=== PATIENT | female | born 1990 | race Caucasian/White ===

== ENCOUNTER 2016-05-10 18:05 | Emergency (ER) | payer OTHER, MEDICAID ==
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
[2016-05-10 22:33] VITALS: BP 135/76
== END 2016-05-10 22:34 | disposition home or self-care (01) ==
LOC: ER 18:05
DX: O26.893 Other specified pregnancy related conditions, third trimester (principal); R10.9 Unspecified abdominal pain; V49.50XA Passenger injured in collision with unspecified motor vehicles in traffic accident, initial encounter; Z3A.34 34 weeks gestation of pregnancy
CPT/HCPCS: 99283

== ENCOUNTER 2016-05-10 22:14 | Outpatient (CLI) | payer OTHER, MEDICAID ==
[2016-05-10 23:16] LABS: APPEARANCE,URINE SLIGHTLY-CLOUDY; BILIRUBIN,URINE NEGATIVE (NEGATIVE); GLUCOSE, URINE NEGATIVE (NEGATIVE); KETONES,URINE TRACE mg/dL (NEGATIVE); LEUKOCYTE ESTERASE,URINE LARGE (NEGATIVE); NITRITE,URINE NEGATIVE (NEGATIVE); PROTEIN,URINE NEGATIVE (NEGATIVE); URINE SPECIFIC GRAVITY 1.003; UROBILINOGEN,URINE NEGATIVE mg/dL (<2.0)
[2016-05-10 23:30] LABS: URINE BARBITURATES SCREEN NEGATIVE; URINE METHADONE SCREEN NEGATIVE; URINE OPIATES LOW NEGATIVE; URINE PHENCYCLIDINE SCREEN NEGATIVE
[2016-05-10 23:52] LABS: ABSOLUTE BASOPHILS # (AUTO) 0.1 10^3/uL (0.0-0.2); ABSOLUTE EOSINOPHILS # (AUTO) 0.1 10^3/uL (0.0-0.6); ABSOLUTE LYMPHOCYTES (AUTO) 2.6 10^3/uL (0.5-4.7); ABSOLUTE MONOCYTES (AUTO) 0.8 10^3/uL (0.1-1.4); ABSOLUTE NEUT (AUTO) 10.2 10^3/uL (1.7-8.2); BASOPHILS % (AUTO) 0.4 % (0-2); EOSINOPHILS % (AUTO) 0.6 % (0-6); HEMATOCRIT 33.3 % (36.0-47.0); HEMOGLOBIN 10.9 g/dL (12.0-15.5); HGB HCT DIFFERENCE -0.6; LYMPHOCYTES % (AUTO) 18.6 % (13-45); MEAN CORPUSCULAR HEMOGLOBIN 26.6 pg (27.0-33.4); MEAN CORPUSCULAR HGB CONC 32.7 g/dL (32.0-36.0); MEAN CORPUSCULAR VOLUME 81 fl (80-97); MONOCYTES % (AUTO) 6.1 % (3-13); RED BLOOD COUNT 4.09 10^6/uL (3.72-5.28); RED CELL DISTRIBUTION WIDTH 14.6 % (11.5-14.0); SEGMENTED NEUTROPHILS % (AUTO) 74.3 % (42-78); WHITE BLOOD COUNT 13.8 10^3/uL (4.0-10.5)
[2016-05-10 23:58] LABS: FIBRINOGEN 582 mg/dL (209-497); PARTIAL THROMBOPLASTIN TIME 26.4 SEC (23.5-35.8)
[2016-05-11 02:34] LABS: TOTAL RBC COUNT 2011; TYPE IN FILE? TYPE NOT IN FILE; VOL OF FETOMATERNAL HEMORRHAGE 0 ML (0)
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
--- NOTE | 2016-05-11 04:46 | Antepartum Discharge Summary ---
Antepartum DC Datetime Report Generated by CPN: 05/11/2016 04:45 DIET/ACTIVITY/RESTRICTIONS Diet: Regular (05/11/2016 00:31:Zita Patino, RN) TEACHING/INSTRUCTIONS/REFERRALS Instructions Given To: Patient and Family (05/11/2016 00:31:Zitamedina Patino RN) Instructions Understood: Patient Verbalized Understanding; Support Person Verbalized Understanding (05/11/2016 00:31:Zitamedina Patino RN) Referrals: None (05/11/2016 00:31:Zita Patino RN) Educational Materials- Other: Kick Counts, Labor, Placental Abruption Precautions (05/11/2016 00:31:Zita Patino RN) DISCHARGE INFORMATION Discharged AMA: No (05/11/2016 00:31:Zita Patino RN) Discharge Date/Time: 05/11/2016 00:21 (05/11/2016 00:31:Zita Patino RN) Discharged To: Home (05/11/2016 00:31:Zita Patino RN) Discharge Provider Name: [place] (05/11/2016 00:31:Zita Patino RN) Accompanied By: Family (05/11/2016 00:31:Zita Patino RN) Discharge Method: Ambulatory (05/11/2016 00:31:Zita Patino RN) Condition: Stable (05/11/2016 00:31:Zita Patino RN) FOLLOW UP INFORMATION Follow Up With: [facility] (05/11/2016 00:31:Zita Patino RN) Follow Up On: As Scheduled (05/11/2016 00:31:Zita Patino RN) Follow Up Phone Number: [facility] - (05/11/2016 00:31:Zita Patino RN) Comments: Patient advised to return for bleeding like a period, leaking of fluid, contractions every 5 minutes for an hour, or decreased movement. Patient without questions at this time. (05/11/2016 00:31:Zita Patino RN)
--- NOTE | 2016-05-11 04:46 | L&D General Admission ---
General Admit Datetime Report Generated by CPN: 05/11/2016 04:45 INFORMATION Patient Age: 26 (04/18/2016 09:36:QS system process) EDC: 06/17/2016 00:00 (05/10/2016 22:18:Indira Murillo RN) : 3 (05/10/2016 22:18:Zita Patino RN) Para: 2 (05/11/2016 00:31:Zita Patino RN) Para: 2 (05/10/2016 22:18:Zita Patino RN) Term: 2 (05/10/2016 22:18:Zita Patino RN) : 0 (05/10/2016 22:18:Zita Patino RN) Spontaneous Abortions: 0 (05/10/2016 22:18:Zita Patino RN) Induced Abortions: 0 (05/10/2016 22:18:Zita Patino RN) Livin (05/10/2016 22:18:Zita Patino RN) Cesareans: 0 (05/10/2016 22:18:Zita Patino RN) VBACs: 0 (05/10/2016 22:18:Zita Patino RN) Ectopic: 0 (05/10/2016 22:18:Zita Patino RN) Multiple Births: 0 (05/10/2016 22:18:Zita Patino RN) Baby, Number in Womb: 1 (05/11/2016 00:31:Zita Patino RN) Baby, Number in Womb: 1 (05/10/2016 22:18:Zita Patino RN) CARE Primary Certified Procedural Coder: [employer] [facility] (05/10/2016 22:18:Zita Patino RN) Adequate Care: Yes (05/10/2016 22:18:iZta Patino RN) Height (in): 60 (05/10/2016 22:24:QS system process) ALLERGIES Medication Allergy: No (05/10/2016 22:18:Zita Patino RN) Medication Allergies: No Known Allergies (05/10/2016) (05/10/2016 18:28:QS system process) Latex Allergy: No Latex Allergies (05/10/2016 22:18:Zita Patino RN) Food Allergies: none (05/10/2016 22:18:Zita Patino RN) Environmental Allergies: none (05/10/2016 22:18:Zita Patino, RN) COMMUNICATION Primary Language: [place] (05/10/2016 22:18:Zita Patino RN) Medical Tx Preferred Language: [place] (05/10/2016 22:18:Zita Patino, RN) DEMOGRAPHICS Address: [address] [place] [id number] (04/18/2016 09:36:QS system process) Zipcode: [address] (04/18/2016 09:36:QS system process) Home (04/18/2016 09:36:QS system process) Work (05/10/2016 22:14:QS system process) Work (04/18/2016 09:36:QS system process) SSN: [id number] (04/18/2016 09:36:QS system process) Next of Kin Name: ANDREW PUCKETT (04/18/2016 09:36:QS system process) Next of Kin (04/18/2016 09:36:QS system process) Next of Kin Relationship: SPO (04/18/2016 09:36:QS system process) Date of : 1990 (04/18/2016 09:36:QS system process) Marital Status: (04/18/2016 09:36:QS system process) Sex: Female (04/18/2016 09:36:QS system process) Race: (04/18/2016 09:36:QS system process) Ethnicity: Non- or (04/18/2016 09:36:QS system process) Caodaism: None (04/18/2016 09:36:QS system process) DRUG AND ALCOHOL USE Alcohol: No (05/10/2016 22:18:Zita Patino RN) Cigarettes: Never Smoker. [id number] (05/10/2016 22:18:Zita Patino RN) Marijuana: No (05/10/2016 22:18:Zita Patino RN) Cocaine: No (05/10/2016 22:18:Zita Patino RN) Other Illicit Drugs: No (05/10/2016 22:18:Zita Patino RN) VACCINE HISTORY Influenza Vaccine: Yes (05/10/2016 22:18:Zita Patino RN) Pneumococcal Vaccine: No (05/10/2016 22:18:Zita Patino RN) Tetanus Vaccine: Yes (05/10/2016 22:18:Zita Patino RN) Tdap Vaccine: Yes (05/10/2016 22:18:Zita Patino RN) Hepatitis B Vaccine: Yes (05/10/2016 22:18:Zita Patino RN) Stitcher Standard Machine: Dr Wolfe (05/10/2016 22:18:Zita Patino RN) Feeding Preference: Breast (05/10/2016 22:18:Zita Patino RN) Benefit of Breast Feed Discussed: Yes (05/10/2016 22:18:Zita Patino RN) Circumcision: No (05/10/2016 22:18:Zita Patino RN) Classes Attended: No (05/10/2016 22:18:Zita Patino RN) Tubal Ligation: No (05/10/2016 22:18:Zita Patino RN) Tubal Authorization Signed: N/A (05/10/2016 22:18:Zita Patino RN) Consent: N/A (05/10/2016 22:18:Zita Patino RN) Consent Signed: N/A (05/10/2016 22:18:Zita Patino RN) Pain Management Plans: Epidural (05/10/2016 22:18:Zita Patino RN) Plans for Labor and Delivery: None (05/10/2016 22:18:Zita Patino RN) Support Person: Miguelangel (05/10/2016 22:18:Zita Patino RN) Support Person Relationship: (05/10/2016 22:18:Zita Patino RN) Cultural/Spritual Practice: No (05/10/2016 22:18:Zita Patino RN) Spir/Cult Dietary Needs: No (05/10/2016 22:18:Zita Patino RN) LIVING SITUATION/DISCHARGE PLAN Living Arrangements: House (05/10/2016 22:18:Zita Patino RN) Adequate Access to:: Electric; Heat; Refrigeration; Plumbing/Running water; Phone; Transportation (05/10/2016 22:18:Zita Patino RN) WIC Program: No (05/10/2016 22:18:Zita Patino RN) Discharge Electrician Maintenance Person: Miguelangel (05/10/2016 22:18:Zita Patino RN) Person to Help after Discharge: Miguelangel (05/10/2016 22:18:Zita Patino RN) Currently Using Commun Resources: Yes (05/10/2016 22:18:Zita Patino RN) Specify Current Resource Used: Medicaid (05/10/2016 22:18:Zita Patino RN) Outside Agency/Ring Packer: No (05/10/2016 22:18:Zita Patino RN) Car Seat for Discharge: No (05/10/2016 22:18:Zita Patino RN) Adoption Requested: No (05/10/2016 22:18:Zita Patino RN) Pt Contact w/infant Post : N/A (05/10/2016 22:18:Zita Patino RN) LABS Blood Type: O Positive (05/10/2016 22:18:Zita Patino RN) Antibody Screen: negative (05/10/2016 22:18:Zita Patino RN) Hemoglobin: 10.9 L (05/10/2016 23:39:QS system process) Hematocrit: 33.3 L (05/10/2016 23:39:QS system process) MCV: 81 (05/10/2016 23:39:QS system process) Gonorrhea: Negative (05/10/2016 22:18:Zita Patino RN) Chlamydia: Negative (05/10/2016 22:18:Zita Patino RN) RPR/VDRL: Nonreactive (05/10/2016 22:18:Zita Patino RN) HIV Results: negative (05/10/2016 22:18:Zita Patino RN) Hepatitis B: Negative (05/10/2016 22:18:Zita Patino RN) Rubella: Immune (05/10/2016 22:18:Zita Patino RN) OB/PREVIOUS HISTORY Previous Procedures: Ultrasound; NST (05/10/2016 22:18:Zita Patino RN) Current Procedures: Ultrasound; NST (05/10/2016 22:18:Zita Patino RN) History of Previous : No (05/10/2016 22:18:Zita Patino RN) History of Gestational Diabetes: No (05/10/2016 22:18:Zita Patino RN) History of PIH: No (05/10/2016 22:18:Zita Patino RN) History of Incompetent Cervix: No (05/10/2016 22:18:Zita Patino RN) History of Placenta Previa/Abrup: No (05/10/2016 22:18:Zita Patino RN) History of Macrosomia: No (05/10/2016 22:18:Zita Patino RN) History of IUGR: No (05/10/2016 22:18:Zita Patino RN) History of Hemorrhage: No (05/10/2016 22:18:Zita Patino RN) History of Loss/Stillborn: No (05/10/2016 22:18:Zita Patino RN) History of : No (05/10/2016 22:18:Zita Patino RN) History of D (Rh) Sensitization: No (05/10/2016 22:18:Zita Patino RN) History Recurrent Loss/Stillborn: No (05/10/2016 22:18:Zita Patino RN) History Depression/PP Depression: No (05/10/2016 22:18:Zita Patino RN) History of Uterine Anomaly/ULISES: No (05/10/2016 22:18:Zita Patino RN) History of Infertility: No (05/10/2016 22:18:Zita Patino RN) History of ART Treatment: No (05/10/2016 22:18:Ziat Patino RN) History of ULISES: No (05/10/2016 22:18:Zita Patino RN) Comments Obstetrical History: G1: 2011 female 5lbs 15 ounces G2: 2012 female 5 lbs 2 ounces G3: Current (05/10/2016 22:18:Zita Patino RN) MEDICAL HISTORY Med Hx Diabetes: No (05/10/2016 22:18:Zita Patino RN) Med Hx Hypertension: Yes (05/10/2016 22:18:Zita Patino RN) Med Hx Heart Disease: No (05/10/2016 22:18:Zita Patino RN) Med Hx Autoimmune Disorder: No (05/10/2016 22:18:Zita Patino RN) Med Hx Kidney Disease/UTI: No (05/10/2016 22:18:Zita Patino RN) Med Hx Neurologic/Epilepsy: No (05/10/2016 22:18:Zita Patino RN) Med Hx Psychiatric Disorders: No (05/10/2016 22:18:Zita Patino RN) Med Hx Hepatitis/Liver Disease: No (05/10/2016 22:18:Zita Patino RN) Med Hx Varicosities/Phlebitis: No (05/10/2016 22:18:Zita Patino RN) Med Hx Thyroid Dysfunction: No (05/10/2016 22:18:Zita Patino RN) Med Hx Trauma/Violence: No (05/10/2016 22:18:Zita Patino RN) Med Hx Blood Transfusion: No (05/10/2016 22:18:Zita Patino RN) Med Hx Pulmonary (Asthma,TB): No (05/10/2016 22:18:Zita Patino RN) Med Hx Breast: No (05/10/2016 22:18:Zita Patino RN) Med Hx PULMONOLOGY TECHNICIAN Surgery: No (05/10/2016 22:18:Zita Patino RN) Med Hx Hospitalization/Surgery: Yes (05/10/2016 22:18:Zita Patino RN) Med Hx Anesthetic Complications: No (05/10/2016 22:18:Zita Patino RN) Med Hx Abnormal Pap Smear: No (05/10/2016 22:18:Zita Patino RN) Other Medical Diseases: No (05/10/2016 22:18:Zita Patino RN) Med Hx Significant Family Hx: No (05/10/2016 22:18:Zita Patino RN) Details of Med/Surg Hx: childbirth (05/10/2016 22:18:Zita Patino RN) INFECTIOUS HISTORY Inf Hx Gonorrhea: No (05/10/2016 22:18:Zita Patino RN) Inf Hx Chlamydia: No (05/10/2016 22:18:Zita Patino RN) Inf Hx Syphilis: No (05/10/2016 22:18:Zita Patino RN) Inf Hx HIV/AIDS: No (05/10/2016 22:18:Zita Patino RN) Inf Hx Human Papilloma Virus: No (05/10/2016 22:18:Zita Patino RN) Inf Hx Pt/Partner Genital Herpes: No (05/10/2016 22:18:Zita Patino RN) Inf Hx Tuberculosis/Exposure: No (05/10/2016 22:18:Zita Patino RN) Inf Hx Hepatitis B,C: No (05/10/2016 22:18:Zita Patino RN) Inf Hx Rash or Viral Illness: No (05/10/2016 22:18:Zita Patino RN) GENETIC HISTORY Gen Hx Age >=35 at [place]: No (05/10/2016 22:18:Zita Patino RN) Gen Hx Thalassemia: No (05/10/2016 22:18:Zita Patino RN) Gen Hx Congenital Heart Defect: No (05/10/2016 22:18:Zita Patino RN) Gen Hx Neural Tube Defect: No (05/10/2016 22:18:Zita Patino RN) Gen Hx Down's Syndrome: No (05/10/2016 22:18:Zita Patino RN) Gen Hx Neil-Sachs: No (05/10/2016 22:18:Zita Patino RN) Gen Hx Tres: No (05/10/2016 22:18:Zita Patino RN) Gen Hx Familial Dysautonomia: No (05/10/2016 22:18:Zita Patino RN) Gen Hx Sickle Cell Disease/Trait: No (05/10/2016 22:18:Zita Patino RN) Gen Hx Hemophilia/Blood Disorder: No (05/10/2016 22:18:Zita Patino RN) Gen Hx Muscular Dystrophy: No (05/10/2016 22:18:Zita Patino RN) Gen Hx Cystic Fibrosis: No (05/10/2016 22:18:Zita Patino RN) Gen Hx Huntingtons Chorea: No (05/10/2016 22:18:Zita Patino RN) Gen Hx Mental Retardation/Autism: No (05/10/2016 22:18:Zita Patino RN) Gen Hx Tested for Fragile X: No (05/10/2016 22:18:Zita Patino RN) Gen Hx Other Inher/Chromosomal: No (05/10/2016 22:18:Zita Patino RN) Gen Hx Maternal Metabolic DO: No (05/10/2016 22:18:Zita Patino RN) Gen Hx Pt Father or FOB Defect: No (05/10/2016 22:18:Zita Patino RN) Gen Hx Other Genetic History: No (05/10/2016 22:18:Zita Patino RN) Gen Hx Drugs/Meds since LMP: No (05/10/2016 22:18:Zita Patino RN)
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
--- NOTE | 2016-05-11 04:46 | L&D Admission Assessment ---
LD ADM ASMT Datetime Report Generated by CPN: 05/11/2016 04:45 PATIENT ASSESSMENT Assessment Type: Triage (05/10/2016 22:33:Zita Patino, RN) WEIGHT Weight (lb): 136 (05/10/2016 22:24:QS system process) Weight (kg): 61.8 (05/10/2016 22:24:QS system process) PAIN Pain Scale: 1 (05/11/2016 00:15:Zita Patino, RN) Pain Scale: 2 (05/10/2016 22:33:Zita Patino, RN) Pain Presence: Intermittent (05/11/2016 00:15:Zita Patino, RN) Pain Presence: Intermittent (05/10/2016 22:33:Zita Patino, RN) Pain Type: Cramping (05/11/2016 00:15:Zita Patino, RN) Pain Type: Cramping (05/10/2016 22:33:Zita Patino, RN) Pain Location: Abdomen (05/11/2016 00:15:Zita Patino, RN) Pain Location: Abdomen (05/10/2016 22:33:Zita Patino, RN) Pain Related to Contraction: Unsure (05/10/2016 22:33:Zita Patino, RN) CONTRACTIONS Frequency (min): irregular with irritability (05/11/2016 00:15:Zita Patino, RN) Frequency (min): irregular (05/10/2016 23:45:Zita Patino, RN) Duration (sec): 40-60 (05/11/2016 00:15:Zita Patino RN) Duration (sec): 40-70 (05/10/2016 23:45:Zita Patino RN) Quality: Mild (05/11/2016 00:15:Zita Sukumar RN) Quality: Mild (05/10/2016 23:45:Zita Patino, RN) Pattern: Normal: <= 5 Contractions in 10 Minutes (05/11/2016 00:15:Zita Patino RN) Pattern: Normal: <= 5 Contractions in 10 Minutes (05/10/2016 23:45:Zita Patino, RN) Resting Tone [place]: Relaxed (05/11/2016 00:15:Zita Patino RN) Resting Tone [place]: Relaxed (05/10/2016 23:45:Zita Patino, RN) Contraction Comments: TOCO applied (05/10/2016 23:21:Zita Patino RN) NEURO Level of Consciousness: Fully Conscious (05/10/2016 22:33:Zita Patino RN) DTR's/Clonus: DTRs 1+; No Clonus (05/10/2016 22:33:Zita Patino RN) Headache: Denies (05/10/2016 22:33:Zita Patino RN) Dizziness: No (05/10/2016 22:33:Zita Patino RN) Blurred Vision: No (05/10/2016 22:33:Zita Patino RN) Extremity Numbness/Tingling : None (05/10/2016 22:33:Zita Patino RN) Extremity Movement: Full Range of Motion (05/10/2016 22:33:Zita Patino, RN) CARDIOVASCULAR Heart Rhythm: Regular (05/10/2016 22:33:Zita Patino, RN) Nailbeds: Riddle (05/10/2016 22:33:Zita Patino, RN) Capillary Refill: Less than 3 Seconds (05/10/2016 22:33:Zita Patino, RN) Lower Extremities Edema: None (05/10/2016 22:33:Zita Patino, RN) Lower Extremities Edema Degree: None (05/10/2016 22:33:Zita Patino, RN) Upper Extremities Edema: None (05/10/2016 22:33:Zita Patino, RN) Upper Extremities Edema Degree: None (05/10/2016 22:33:Zita Patino, RN) Facial Edema: None (05/10/2016 22:33:Zita Patino, RN) Teri's Sign Left Leg: Negative (05/10/2016 22:33:Zita Patino, RN) Teri's Sign Right Leg: Negative (05/10/2016 22:33:Zita Patino, RN) DVT RISK ASSESSMENT DVT Risk Age: Age less than 41 years (05/10/2016 22:33:Zita Patino RN) DVT Risk BMI: BMI<31 (05/10/2016 22:33:Zita Patino RN) DVT Risk Surgery: None Applicable (05/10/2016 22:33:Zita Patino RN) DVT Risk Other: Women Only- or (<1 month) (05/10/2016 22:33:Zita Patino RN) DVT Risk Total: 1 (05/10/2016 22::QS system process) DVT Risk Text: Low Risk (<10%) No specific measures, early ambulation (05/10/2016 22::QS system process) RESPIRATORY Respiratory Effort: Unlabored; Regular Rhythm; Equal Expansion (05/10/2016 22:33:Zita Patino, RN) Breath Sounds, Left: Clear and Equal (05/10/2016 22:33:Zita Patino, RN) Breath Sounds, Right: Clear and Equal (05/10/2016 22:33:Zita Patino, RN) Cough Productivity: None (05/10/2016 22:33:Zita Patino, RN) GASTROINTESTINAL Nausea/Vomiting: Denies (05/10/2016 22:33:Zita Patino, RN) Bowel Sounds: Normoactive; All Quadrants (05/10/2016 22:33:Zita Patino, RN) RUQ Epigastric Pain: Denies (05/10/2016 22:33:Zita Patino, RN) Bowel Patterns: Soft, Formed Stool (05/10/2016 22:33:Zita Patino, RN) Hemorrhoids: None (05/10/2016 22:33:Zita Patino, RN) Diet Type: Regular diet (05/10/2016 22:33:Zita Patino, RN) Last Meal: 05/10/2016 17:00 (05/10/2016 22:33:Zita Patino, RN) GENITOURINARY Bladder: Nondistended (05/10/2016 22:33:Zita Patino, RN) Frequency of Urination: No (05/10/2016 22:33:Zita Patino, RN) Urination Burning: No (05/10/2016 22:33:Zita Patino, RN) CVA Tenderness: No (05/10/2016 22:33:Zita Patino, RN) INTEGUMENTARY Skin Color: Normal for Race (05/10/2016 22:33:Zita Patino RN) Skin Temperature: Warm (05/10/2016 22:33:Zita Patino RN) Skin Moisture: Dry (05/10/2016 22:33:Zita Patino RN) Surgical Scars: none (05/10/2016 22:33:Zita Patino RN) OCTAVIANO SKIN ASSESSMENT Octaviano Scale Sensory Perception: No Impairment- Responds to verbal commands. Has no sensory deficit which would limit ability to feel or voice pain or discomfort (05/10/2016 22:33:Zita Patino RN) Octaviano Scale Moisture: Rarely Moist- Skin is usually dry. Linen only requires changing at routine intervals (05/10/2016 22:33:Zita Patino RN) Octaviano Scale Activity: Walks Frequently- Walks outside the room at least twice a day and inside room at least every 2 hours during the day. (05/10/2016 22:33:Zita Patino RN) Octaviano Scale Mobility: No Limitations- Makes major and frequent changes in position without assistance (05/10/2016 22:33:Zita Patino RN) Octaviano Scale Nutrition: Excellent- Eats most of every meal. Never refuses a meal. Usually eats a total of 4 or more servings of meat and dairy products. Occasionally eats between meals. Does not require supplementation (05/10/2016 22:33:Zita Patino RN) Octaviano Scale Friction and Shear: No Apparent Problem- Moves in bed and in chair independently and has sufficient muscle strength to lift up completely during move. Maintains good position in bed or chair at all times (05/10/2016 22:33:Zita Patino RN) Octaviano Scale Total: 23 (05/10/2016 22:33:QS system process) Octaviano Scale Risk: No Risk of Pressure Ulcer Noted at this Time (05/10/2016 22:33:QS system process) SUPPORT Family Support: Significant Other supportive, at bedside frequently (05/10/2016 22:33:Zita Patino RN) Emotional State: Calm/Relaxed (05/10/2016 22:33:Zita Patino RN) SAFETY Call [place] Within Reach: Yes (05/10/2016 22:33:Zita Patino RN) Side Rails Up: Yes (05/10/2016 22:33:Zita Patino RN) Bed Wheels Locked: Yes (05/10/2016 22:33:Zita Patino RN) Arm Bands Present: Yes (05/10/2016 22:33:Zita Patino RN) Isolation: [place] (05/10/2016 22:33:Zita Patino RN) FALL SCREEN Fall Risk History of Falling: (0) No (05/10/2016 22:33:Zita Patino RN) Fall Risk Secondary Diagnosis: (0) No (05/10/2016 22:33:Zita Patino RN) Fall Risk Ambulatory Aid: (0) None/Bedrest/Wheelchair/Nurse Assist (05/10/2016 22:33:Zita Patino RN) Fall Risk IV Therapy: (0) No (05/10/2016 22:33:Zita Patino RN) Fall Risk Gait: (0) Normal/Bedrest/Immobile (05/10/2016 22:33:Zita Patino RN) Fall Risk Mental Status: (0) Oriented to Own Ability (05/10/2016 22:33:Zita Patino RN) Fall Risk Score: 0 (05/10/2016 22:33:QS system process) Fall Risk Score Definition: No Risk: No action required (05/10/2016 22:33:QS system process) RECENT TRAVEL/INFECTIOUS DISEASE Recent Exp Communicable Disease: No (05/10/2016 22:33:Zita Patino RN) Cough or Fever: No (05/10/2016 22:33:Zita Patino RN) Foreign Travel Past 10 Days: No (05/10/2016 22:33:Zita Patino RN) Open Wounds or Sores: No (05/10/2016 22:33:Zita Patino RN) Prior Antibiotic Resistance Tx: No (05/10/2016 22:33:Zita Patino RN) Cultures Obtained: Not Applicable (05/10/2016 22:33:Zita Patino RN) Isolation Initiated: No (05/10/2016 22:33:Zita Patino RN) Pt/Family Education: Handwashing Hygiene (05/10/2016 22:33:Zita Patino RN) BABY A FHR Baseline Rate (bpm) Baby A: 145 (05/11/2016 00:15:Zita Patino RN) FHR Baseline Rate (bpm) Baby A: 145 (05/10/2016 23:45:Zita Patino RN) Variability Baby A: Moderate 6-25 bpm (05/11/2016 00:15:Zita Patino RN) Variability Baby A: Moderate 6-25 bpm (05/10/2016 23:45:Zita Patino RN) Accelerations Baby A: 15X15 (05/11/2016 00:15:Ztia Patino RN) Accelerations Baby A: 15X15 (05/10/2016 23:45:Zita Patino RN) Decelerations Baby A: None (05/11/2016 00:15:Zita Patino RN) Decelerations Baby A: None (05/10/2016 23:45:Zita Patino RN)
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
== END 2016-05-11 00:21 | disposition home or self-care (01) ==
LOC: LC 22:14
PROVIDERS: ATTEND Specialist
PROC: 4A1HXCZ Monitoring of Products of Conception, Cardiac Rate, External Approach (ICD-10-PCS; principal; 2016-05-10)
DX: O47.03 False labor before 37 completed weeks of gestation, third trimester (principal); Z3A.34 34 weeks gestation of pregnancy
CPT/HCPCS: 36415; 59025; 76815; 80307; 81001; 85025; 85384; 85460; 85610; 85730; 86900; 86901

== ENCOUNTER 2016-06-17 15:56 | Outpatient (CLI) | payer OTHER, MEDICAID ==
[2016-06-17 16:18] LABS: APPEARANCE,URINE CLOUDY; BILIRUBIN,URINE NEGATIVE (NEGATIVE); GLUCOSE, URINE NEGATIVE (NEGATIVE); KETONES,URINE TRACE mg/dL (NEGATIVE); LEUKOCYTE ESTERASE,URINE LARGE (NEGATIVE); NITRITE,URINE NEGATIVE (NEGATIVE); PROTEIN,URINE NEGATIVE (NEGATIVE); URINE SPECIFIC GRAVITY 1.004; UROBILINOGEN,URINE NEGATIVE mg/dL (<2.0)
[2016-06-17 16:33] LABS: URINE BARBITURATES SCREEN NEGATIVE; URINE METHADONE SCREEN NEGATIVE; URINE OPIATES LOW NEGATIVE; URINE PHENCYCLIDINE SCREEN NEGATIVE
--- NOTE | 2016-06-17 18:18 | Non Stress Test Report ---
Non Stress Test Datetime Report Generated by CPN: 06/17/2016 18:18 DEMOGRAPHIC EGA NST: 40.0 INDICATION Indication for Study: Ordered by Provider MONITORING Monitor Explained: Monitor Explained; Test Explained; Patient Verbalized Understanding Time on Monitor: 06/17/2016 17:48 Time off Monitor: 06/17/2016 18:12 NST Duration: 24 NST INTERVENTIONS NST Interventions: PO Hydration Physician Notified NST: Dr. Wesley BABY A Movement : Present Contraction Frequency : 5-8 FHR Baseline : 140 Accelerations : 15X15 Decelerations : None Variability : Moderate 6-25bpm NST Review: Meets Criteria for Reactive NST NST Review and Verified By : Wanda Wood RN NST Results: Reactive NST REPORT Report Trigger: Send Report
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
--- NOTE | 2016-06-22 12:56 | L&D General Admission ---
General Admit Datetime Report Generated by CPN: 06/22/2016 12:56 INFORMATION Patient Age: 26 (04/18/2016 09:36:QS system process) EDC: 06/17/2016 00:00 (05/10/2016 22:18:Indira Murillo RN) : 3 (05/10/2016 22:18:Zita Patino RN) Para: 2 (05/11/2016 00:31:Zita Patino RN) Para: 2 (05/10/2016 22:18:Zita Patino RN) Term: 2 (05/10/2016 22:18:Zita Patino RN) : 0 (05/10/2016 22:18:Zita Patino RN) Spontaneous Abortions: 0 (05/10/2016 22:18:Zita Patino RN) Induced Abortions: 0 (05/10/2016 22:18:Zita Patino RN) Livin (05/10/2016 22:18:Zita Patino RN) Cesareans: 0 (05/10/2016 22:18:Zita Patino RN) VBACs: 0 (05/10/2016 22:18:Zita Patino RN) Ectopic: 0 (05/10/2016 22:18:Zita Patino RN) Multiple Births: 0 (05/10/2016 22:18:Zita Patino RN) Baby, Number in Womb: 1 (05/11/2016 00:31:Zita Patino RN) Baby, Number in Womb: 1 (05/10/2016 22:18:Zita Patino RN) CARE Primary Naval Designer: [facility] (05/10/2016 22:18:Zita Patino RN) Adequate Care: Yes (05/10/2016 22:18:Zita Patino RN) ALLERGIES Medication Allergy: No (05/10/2016 22:18:Zita Patino RN) Medication Allergies: No Known Allergies (05/10/2016) (05/10/2016 18:28:QS system process) Latex Allergy: No Latex Allergies (05/10/2016 22:18:Zita Patino RN) Food Allergies: none (05/10/2016 22:18:Zita Patino RN) Environmental Allergies: none (05/10/2016 22:18:Zita Patino, RN) COMMUNICATION Primary Language: Occitan (05/10/2016 22:18:Zita Patino RN) Medical Tx Preferred Language: Occitan (05/10/2016 22:18:Zita Patino RN) DEMOGRAPHICS Address: [address] [place] [id number] (04/18/2016 09:36:QS system process) Zipcode: [address] (04/18/2016 09:36:QS system process) Home (04/18/2016 09:36:QS system process) Work (05/10/2016 22:14:QS system process) Work (04/18/2016 09:36:QS system process) [facility]: [id number] (04/18/2016 09:36:QS system process) Next of Kin Name: ANDREW PUCKETT (04/18/2016 09:36:QS system process) Next of Kin (04/18/2016 09:36:QS system process) Next of Kin Relationship: SPO (04/18/2016 09:36:QS system process) Date of : 1990 (04/18/2016 09:36:QS system process) Marital Status: (04/18/2016 09:36:QS system process) Sex: Female (04/18/2016 09:36:QS system process) Race: (04/18/2016 09:36:QS system process) Ethnicity: Non- or (04/18/2016 09:36:QS system process) Zoroastrian: None (04/18/2016 09:36:QS system process) DRUG AND ALCOHOL USE Alcohol: No (05/10/2016 22:18:Zita Patino RN) Cigarettes: Never Smoker. [id number] (05/10/2016 22:18:Zita Patino RN) Marijuana: No (05/10/2016 22:18:Zita Patino RN) Cocaine: No (05/10/2016 22:18:Zita Patino RN) Other Illicit Drugs: No (05/10/2016 22:18:Zita Patino RN) VACCINE HISTORY Influenza Vaccine: Yes (05/10/2016 22:18:Zita Patino RN) Pneumococcal Vaccine: No (05/10/2016 22:18:Zita Patino RN) Tetanus Vaccine: Yes (05/10/2016 22:18:Zita Patino RN) Tdap Vaccine: Yes (05/10/2016 22:18:Zita Patino RN) Hepatitis B Vaccine: Yes (05/10/2016 22:18:Zita Patino RN) Carbon Capture Power Plant Engineer: Dr Wolfe (05/10/2016 22:18:Zita Patino RN) Feeding Preference: Breast (05/10/2016 22:18:Zita Patino RN) Benefit of Breast Feed Discussed: Yes (05/10/2016 22:18:Zita Patino RN) Circumcision: No (05/10/2016 22:18:Zita Patino RN) Classes Attended: No (05/10/2016 22:18:Zita Patino RN) Tubal Ligation: No (05/10/2016 22:18:Zita Patino RN) Tubal Authorization Signed: N/A (05/10/2016 22:18:Zita Patino RN) Consent: N/A (05/10/2016 22:18:Zita Patino RN) Consent Signed: N/A (05/10/2016 22:18:Zita Patino RN) Pain Management Plans: Epidural (05/10/2016 22:18:Zita Patino RN) Plans for Labor and Delivery: None (05/10/2016 22:18:Zita Patino RN) Support Person: Miguelangel (05/10/2016 22:18:Zita Patino RN) Support Person Relationship: (05/10/2016 22:18:Zita Patino RN) Cultural/Spritual Practice: No (05/10/2016 22:18:Zita Patino RN) Spir/Cult Dietary Needs: No (05/10/2016 22:18:Zita Patino RN) LIVING SITUATION/DISCHARGE PLAN Living Arrangements: House (05/10/2016 22:18:Zita Patino RN) Adequate Access to:: Electric; Heat; Refrigeration; Plumbing/Running water; Phone; Transportation (05/10/2016 22:18:Zita Patino RN) WIC Program: No (05/10/2016 22:18:Zita Patino RN) Discharge Ground Operations Crew Member Person: Miguelangel (05/10/2016 22:18:Zita Patino RN) Person to Help after Discharge: Miguelangel (05/10/2016 22:18:Zita Patino RN) Currently Using Commun Resources: Yes (05/10/2016 22:18:Zita Patino RN) Specify Current Resource Used: Medicaid (05/10/2016 22:18:Zita Patino RN) Outside Agency/Gray Mixing Operator: No (05/10/2016 22:18:Zita Patino RN) Car Seat for Discharge: No (05/10/2016 22:18:Zita Patino RN) Adoption Requested: No (05/10/2016 22:18:Zita Patino RN) Pt Contact w/ Post : N/A (05/10/2016 22:18:Zita Patino RN) LABS Blood Type: O Positive (05/10/2016 22:18:Zita Patino RN) Antibody Screen: negative (05/10/2016 22:18:Zita Patino RN) Rho(G) this : Not Applicable (05/10/2016 22:18:Dalila Wood RN) Hemoglobin: 10.9 L (05/10/2016 23:39:QS system process) Hematocrit: 33.3 L (05/10/2016 23:39:QS system process) MCV: 81 (05/10/2016 23:39:QS system process) Group Beta Strep: negative (05/10/2016 22:18:Dalila Wood RN) Gonorrhea: Negative (05/10/2016 22:18:Zita Patino RN) Chlamydia: Negative (05/10/2016 22:18:Zita aPtino RN) RPR/VDRL: Nonreactive (05/10/2016 22:18:Zita Patino RN) HIV Results: negative (05/10/2016 22:18:Zita Patino RN) Hepatitis B: Negative (05/10/2016 22:18:Zita Patino RN) Rubella: Immune (05/10/2016 22:18:Zita Patino RN) OB/PREVIOUS HISTORY Previous Procedures: Ultrasound; NST (05/10/2016 22:18:Zita Patino RN) Current Procedures: Ultrasound; NST (05/10/2016 22:18:Zita Ptaino RN) History of Previous : No (05/10/2016 22:18:Zita Patino RN) History of Gestational Diabetes: No (05/10/2016 22:18:Zita Patino RN) History of PIH: No (05/10/2016 22:18:Zita Patino RN) History of Incompetent Cervix: No (05/10/2016 22:18:Zita Patino RN) History of Placenta Previa/Abrup: No (05/10/2016 22:18:Zita Patino RN) History of Macrosomia: No (05/10/2016 22:18:Zita Patino RN) History of IUGR: No (05/10/2016 22:18:Zita Patino RN) History of Hemorrhage: No (05/10/2016 22:18:Zita Patino RN) History of Loss/Stillborn: No (05/10/2016 22:18:Zita Patino RN) History of : No (05/10/2016 22:18:Zita Patino RN) History of D (Rh) Sensitization: No (05/10/2016 22:18:Zita Patino RN) History Recurrent Loss/Stillborn: No (05/10/2016 22:18:Zita Patino RN) History Depression/PP Depression: No (05/10/2016 22:18:Zita Patino RN) History of Uterine Anomaly/ULISES: No (05/10/2016 22:18:Zita Patino RN) History of Infertility: No (05/10/2016 22:18:Zita Patino RN) History of ART Treatment: No (05/10/2016 22:18:Zita Patino RN) History of ULISES: No (05/10/2016 22:18:Zita Patino RN) Comments Obstetrical History: G1: 2011 female 5lbs 15 ounces G2: 2012 female 5 lbs 2 ounces G3: Current (05/10/2016 22:18:Zita Patino RN) MEDICAL HISTORY Med Hx Diabetes: No (05/10/2016 22:18:Zita Patino RN) Med Hx Hypertension: Yes (05/10/2016 22:18:Zita Patino RN) Med Hx Heart Disease: No (05/10/2016 22:18:Zita Patino RN) Med Hx Autoimmune Disorder: No (05/10/2016 22:18:Zita Patino RN) Med Hx Kidney Disease/UTI: No (05/10/2016 22:18:Zita Patino RN) Med Hx Neurologic/Epilepsy: No (05/10/2016 22:18:Zita Patino RN) Med Hx Psychiatric Disorders: No (05/10/2016 22:18:Zita Patino RN) Med Hx Hepatitis/Liver Disease: No (05/10/2016 22:18:Zita Patino RN) Med Hx Varicosities/Phlebitis: No (05/10/2016 22:18:Zita Patino RN) Med Hx Thyroid Dysfunction: No (05/10/2016 22:18:Zita Patino RN) Med Hx Trauma/Violence: No (05/10/2016 22:18:Zita Patino RN) Med Hx Blood Transfusion: No (05/10/2016 22:18:Zita Patino RN) Med Hx Pulmonary (Asthma,TB): No (05/10/2016 22:18:Zita Patino RN) Med Hx Breast: No (05/10/2016 22:18:Zita Patino RN) Med Hx UNDERWRITING DIRECTOR Surgery: No (05/10/2016 22:18:Zita Patino RN) Med Hx Hospitalization/Surgery: Yes (05/10/2016 22:18:Zita Patino RN) Med Hx Anesthetic Complications: No (05/10/2016 22:18:Zita Patino RN) Med Hx Abnormal Pap Smear: No (05/10/2016 22:18:Zita Patino RN) Other Medical Diseases: No (05/10/2016 22:18:Zita Patino RN) Med Hx Significant Family Hx: No (05/10/2016 22:18:Zita Patino RN) Details of Med/Surg Hx: childbirth (05/10/2016 22:18:Zita Patino RN) INFECTIOUS HISTORY Inf Hx Gonorrhea: No (05/10/2016 22:18:Zita Patino RN) Inf Hx Chlamydia: No (05/10/2016 22:18:Zita Patino RN) Inf Hx Syphilis: No (05/10/2016 22:18:Zita Patino RN) Inf Hx HIV/AIDS: No (05/10/2016 22:18:Zita Patino RN) Inf Hx Human Papilloma Virus: No (05/10/2016 22:18:Zita Patino RN) Inf Hx Pt/Partner Genital Herpes: No (05/10/2016 22:18:Zita Patino RN) Inf Hx Tuberculosis/Exposure: No (05/10/2016 22:18:Zita Patino RN) Inf Hx Hepatitis B,C: No (05/10/2016 22:18:Zita Patino RN) Inf Hx Rash or Viral Illness: No (05/10/2016 22:18:Zita Patino RN) GENETIC HISTORY Gen Hx Age >=35 at [place]: No (05/10/2016 22:18:Zita Patino RN) Gen Hx Thalassemia: No (05/10/2016 22:18:Zita Patino RN) Gen Hx Congenital Heart Defect: No (05/10/2016 22:18:Zita Patino RN) Gen Hx Neural Tube Defect: No (05/10/2016 22:18:Zita Patino RN) Gen Hx Down's Syndrome: No (05/10/2016 22:18:Zita Patino RN) Gen Hx Neil-Sachs: No (05/10/2016 22:18:Zita Patino RN) Gen Hx Tres: No (05/10/2016 22:18:Zita Patino RN) Gen Hx Familial Dysautonomia: No (05/10/2016 22:18:Zita Patino RN) Gen Hx Sickle Cell Disease/Trait: No (05/10/2016 22:18:Zita Patino RN) Gen Hx Hemophilia/Blood Disorder: No (05/10/2016 22:18:Zita Patino RN) Gen Hx Muscular Dystrophy: No (05/10/2016 22:18:Zita Patino RN) Gen Hx Cystic Fibrosis: No (05/10/2016 22:18:Zita Patino RN) Gen Hx Huntingtons Chorea: No (05/10/2016 22:18:Ziat Patino RN) Gen Hx Mental Retardation/Autism: No (05/10/2016 22:18:Zita Patino RN) Gen Hx Tested for Fragile X: No (05/10/2016 22:18:Zita Patino RN) Gen Hx Other Inher/Chromosomal: No (05/10/2016 22:18:Zita Patino RN) Gen Hx Maternal Metabolic DO: No (05/10/2016 22:18:Zita Patino RN) Gen Hx Pt Father or FOB Defect: No (05/10/2016 22:18:Zita Patino RN) Gen Hx Other Genetic History: No (05/10/2016 22:18:Zita Patino RN) Gen Hx Drugs/Meds since LMP: No (05/10/2016 22:18:Zita Patino RN)
--- NOTE | 2016-06-22 12:57 | L&D Admission Assessment ---
LD ADM ASMT Datetime Report Generated by CPN: 06/22/2016 12:57 Pain Scale: 3 (06/17/2016 18:12:Ness Honeycutt RN) Pain Scale: 3 (06/17/2016 16:12:Ness Honeycutt RN) Pain Presence: None/Denies (06/17/2016 18:12:Ness Honeycutt RN) Pain Presence: Intermittent (06/17/2016 16:12:Ness Honeycutt RN) Pain Type: N/A (06/17/2016 18:12:Ness Honeycutt RN) Pain Type: Contraction (06/17/2016 16:12:Ness Honeycutt RN) Pain Location: Abdomen (06/17/2016 18:12:Ness Honeycutt RN) Pain Location: Abdomen; Back (06/17/2016 16:12:Ness Honeycutt RN) Pain Goal: 0 (06/17/2016 18:12:Ness Honeycutt RN) Pain Goal: 0 (06/17/2016 16:12:Ness Honeycutt RN) Pain Related to Contraction: Yes (06/17/2016 16:12:Ness Honeycutt RN) Frequency (min): 5-8 (06/17/2016 18:10:Ness Honeycutt RN) Frequency (min): 3-8 (06/17/2016 16:45:Ness Honeycutt RN) Frequency (min): every 3 mins (06/17/2016 16:12:Ness Honeycutt RN) Duration (sec): 60-100 (06/17/2016 18:10:Ness Honeycutt RN) Duration (sec): 60-90 (06/17/2016 16:45:Ness Honeycutt RN) Quality: Moderate (06/17/2016 18:10:Ness Honeycutt RN) Quality: Mild/Moderate (06/17/2016 16:45:Ness Honeycutt RN) Resting Tone Wilderness Rim: Relaxed (06/17/2016 18:10:Ness Honeycutt RN) Resting Tone Wilderness Rim: Relaxed (06/17/2016 16:45:Ness Honeycutt RN) Dilatation (cm): 3.0 (06/17/2016 17:52:Ness Honeycutt RN) Dilatation (cm): 3.0 (06/17/2016 16:12:Ness Honeycutt RN) Effacement (%): 50 (06/17/2016 17:52:Ness Honeycutt RN) Effacement (%): 50 (06/17/2016 16:12:Ness Honeycutt RN) Station: -2 (06/17/2016 17:52:Ness Honeycutt RN) Station: -2 (06/17/2016 16:12:Ness Honeycutt RN) Level of Consciousness: Fully Conscious (06/17/2016 16:12:Ness Honeycutt RN) DTR's/Clonus: DTRs 2+; No Clonus (06/17/2016 16:12:Ness Honeycutt RN) Headache: Denies (06/17/2016 16:12:Ness Honeycutt RN) Dizziness: No (06/17/2016 16:12:Ness Honeycutt RN) Blurred Vision: No (06/17/2016 16:12:Ness Honeycutt RN) Extremity Numbness/Tingling : None (06/17/2016 16:12:Ness Honeycutt RN) Extremity Movement: Full Range of Motion (06/17/2016 16:12:Ness Honeycutt RN) Heart Rhythm: Regular (06/17/2016 16:12:Ness Honeycutt RN) Nailbeds: [place]angee (06/17/2016 16:12:Ness Honeycutt RN) Capillary Refill: Less than 3 Seconds (06/17/2016 16:12:Ness Honeycutt RN) Lower Extremities Edema: Bilateral Lower Extremities (06/17/2016 16:12:Ness Honeycutt RN) Lower Extremities Edema Degree: generalized (06/17/2016 16:12:Ness Honeycutt RN) Upper Extremities Edema: None (06/17/2016 16:12:Ness Honeycutt RN) Upper Extremities Edema Degree: None (06/17/2016 16:12:Ness Honeycutt RN) Facial Edema: None (06/17/2016 16:12:Ness Honeycutt RN) Teri's Sign Left Leg: Negative (06/17/2016 16:12:Ness Honeycutt RN) Teri's Sign Right Leg: Negative (06/17/2016 16:12:Ness Honeycutt RN) DVT Risk Age: Age less than 41 years (06/17/2016 16:12:Ness Honeycutt RN) DVT Risk BMI: BMI<31 (06/17/2016 16:12:Ness Honeycutt RN) DVT Risk Surgery: None Applicable (06/17/2016 16:12:Ness Honeycutt RN) DVT Risk Other: Women Only- History of Unexplained Stillborn Infant, Recurrent Spontaneous (>=3), Premature with Toxemia or Growth-Restricted Infant (06/17/2016 16:12:Ness Honeycutt RN) Respiratory Effort: Unlabored; Regular Rhythm; Equal Expansion (06/17/2016 16:12:Ness Honeycutt RN) Breath Sounds, Left: Clear and Equal (06/17/2016 16:12:Ness Honeycutt RN) Breath Sounds, Right: Clear and Equal (06/17/2016 16:12:Ness Honeycutt RN) Cough Productivity: None (06/17/2016 16:12:Ness Honeycutt RN) Nausea/Vomiting: Denies (06/17/2016 16:12:Ness Honeycutt RN) Bowel Sounds: Normoactive (06/17/2016 16:12:Ness Honeycutt RN) RUQ Epigastric Pain: Present (06/17/2016 16:12:Ness Honeycutt RN) Response to Antacids: Pain Relieved (06/17/2016 16:12:Ness Honeycutt RN) Bowel Patterns: Soft, Formed Stool (06/17/2016 16:12:Ness Honeycutt RN) Hemorrhoids: None (06/17/2016 16:12:Ness Honeycutt RN) Diet Type: Regular diet (06/17/2016 16:12:Ness Honeycutt RN) Last Meal: 06/17/2016 13:30 (06/17/2016 16:12:Ness Honeycutt RN) Bladder: Nondistended (06/17/2016 16:12:Ness Honeycutt RN) Frequency of Urination: No (06/17/2016 16:12:Ness Honeycutt RN) Urination Burning: No (06/17/2016 16:12:Ness Honeycutt RN) CVA Tenderness: No (06/17/2016 16:12:Ness Honeycutt RN) Vaginal Bleeding: Scant (06/17/2016 16:12:Ness Honeycutt RN) Vaginal Discharge Amount: Small (06/17/2016 16:12:Ness Honeycutt RN) Vaginal Discharge Color: White (06/17/2016 16:12:Ness Honeycutt RN) Vaginal Discharge Odor: Non-Odorous (06/17/2016 16:12:Ness Honeycutt RN) Vaginal Discharge Character: Thin (06/17/2016 16:12:Ness Honeycutt RN) Skin Color: Normal for Race (06/17/2016 16:12:Ness Honeycutt RN) Skin Temperature: Warm (06/17/2016 16:12:Ness Honeycutt RN) Skin Moisture: Dry (06/17/2016 16:12:Ness Honeycutt RN) Isiah Scale Moisture: Rarely Moist- Skin is usually dry. Linen only requires changing at routine intervals (06/17/2016 16:12:Ness Honeycutt RN) Isiah Scale Activity: Walks Frequently- Walks outside the room at least twice a day and inside room at least every 2 hours during the day. (06/17/2016 16:12:Ness Honeycutt RN) Isiah Scale Mobility: No Limitations- Makes major and frequent changes in position without assistance (06/17/2016 16:12:Ness Honeycutt RN) Isiah Scale Nutrition: Excellent- Eats most of every meal. Never refuses a meal. Usually eats a total of 4 or more servings of meat and dairy products. Occasionally eats between meals. Does not require supplementation (06/17/2016 16:12:Ness Honeycutt RN) Isiah Scale Friction and Shear: No Apparent Problem- Moves in bed and in chair independently and has sufficient muscle strength to lift up completely during move. Maintains good position in bed or chair at all times (06/17/2016 16:12:Ness Honeycutt RN) Family Support: Significant Other supportive, at bedside frequently; Family supportive (06/17/2016 16:12:Ness Honeycutt RN) Emotional State: Calm/Relaxed (06/17/2016 16:12:Ness Honeycutt RN) Call Zelaya Within Reach: Yes (06/17/2016 16:12:Ness Honeycutt RN) Side Rails Up: Yes (06/17/2016 16:12:Ness Honeycutt RN) Bed Wheels Locked: Yes (06/17/2016 16:12:Ness Honeycutt RN) Arm Bands Present: Yes (06/17/2016 16:12:Ness Honeycutt RN) Isolation: Grant (06/17/2016 16:12:Ness Honeycutt RN) Fall Risk History of Falling: (0) No (06/17/2016 16:12:Ness Honeycutt RN) Fall Risk Secondary Diagnosis: (0) No (06/17/2016 16:12:Ness Honeycutt RN) Fall Risk Ambulatory Aid: (0) None/Bedrest/Wheelchair/Nurse Assist (06/17/2016 16:12:Ness Honeycutt RN) Fall Risk IV Therapy: (0) No (06/17/2016 16:12:Ness Honeycutt RN) Fall Risk Gait: (0) Normal/Bedrest/Immobile (06/17/2016 16:12:Ness Honeycutt RN) Fall Risk Mental Status: (0) Oriented to Own Ability (06/17/2016 16:12:Ness Honeycutt RN) Recent Exp Communicable Disease: No (06/17/2016 16:12:Ness Honeycutt RN) Cough or Fever: No (06/17/2016 16:12:Ness Honeycutt RN) Foreign Travel Past 10 Days: No (06/17/2016 16:12:Ness Honeycutt RN) Open Wounds or Sores: No (06/17/2016 16:12:Ness Honeycutt RN) Prior Antibiotic Resistance Tx: No (06/17/2016 16:12:Ness Honeycutt RN) Cultures Obtained: Not Applicable (06/17/2016 16:12:Ness Honeycutt RN) Isolation Initiated: No (06/17/2016 16:12:Ness Honeycutt RN) Pt/Family Education: Not Applicable (06/17/2016 16:12:Ness Honeycutt RN) FHR Baseline Rate (bpm) Baby A: 140 (06/17/2016 18:10:Ness Honeycutt RN) FHR Baseline Rate (bpm) Baby A: 150 (06/17/2016 16:45:Ness Honeycutt RN) Variability Baby A: Moderate 6-25 bpm (06/17/2016 18:10:Ness Honeycutt RN) Variability Baby A: Moderate 6-25 bpm (06/17/2016 16:45:Ness Honeycutt RN) Accelerations Baby A: 15X15 (06/17/2016 18:10:Ness Honeycutt RN) Accelerations Baby A: 15X15 (06/17/2016 16:45:Ness Honeycutt RN) Decelerations Baby A: None (06/17/2016 18:10:Ness Honeycutt RN) Decelerations Baby A: None (06/17/2016 16:45:Ness Honeycutt RN)
== END 2016-06-17 18:27 | disposition home or self-care (01) ==
LOC: LC 15:56
PROVIDERS: ATTEND Obstetrics & Gynecology
PROC: 4A1HXCZ Monitoring of Products of Conception, Cardiac Rate, External Approach (ICD-10-PCS; principal; 2016-06-17)
DX: O47.1 False labor at or after 37 completed weeks of gestation (principal); Z3A.40 40 weeks gestation of pregnancy
CPT/HCPCS: 59025; 80307; 81005

== ENCOUNTER 2016-06-17 20:14 | Inpatient (IN) | payer OTHER, MEDICAID ==
[2016-06-17] MEDS ORDERED: RINGERS SOLUTION,LACTATED 1,000 ML IV PRN (21:35)
[2016-06-17] MEDS ORDERED: BUPIVACAINE HCL 0.25 % INJ/PF (2.5 MG/1 ML) 30 ML VIAL INFIL ONE (21:35)
[2016-06-17] MEDS ORDERED: BENZOIN/ALOE VERA/STORAX/TOLU TINCTURE 60 ML TP PRN (21:35)
[2016-06-17] MEDS ORDERED: FENTANYL/BUPIVACAINE/NS/PF 100 ML EPI PRN (21:35)
[2016-06-17] MEDS ORDERED: PHENYLEPHRINE HCL INJ/PF 10 MG/1 ML SDV ONE (21:38)
[2016-06-17] MEDS ORDERED: MISOPROSTOL 0.2 MG TABLET ONE (21:38)
[2016-06-17] MEDS ORDERED: FENTANYL/BUPIVACAINE/NS/PF 200 MCG/100 ML RTUINJ EPI ONE (21:38)
[2016-06-17] MEDS ORDERED: EPHEDRINE SULFATE INJ 50 MG/1 ML AMPULE ONE (21:38)
[2016-06-17] MEDS ORDERED: FENTANYL CITRATE INJ/PF 100 MCG/2 ML AMPUL ONE (21:38)
[2016-06-17] MEDS ORDERED: BUPIVACAINE HCL 0.25 % INJ/PF (2.5 MG/1 ML) 30 ML VIAL ONE (21:39)
[2016-06-17] MEDS ORDERED: LIDOCAINE 1% INJ-PF (10 MG/ML) 30 ML SDV ONE (21:39)
[2016-06-17] MEDS ORDERED: OXYTOCIN/NORMAL SALINE 20 UNIT/1,000 ML RTUINJ ONE (21:39)
[2016-06-17 22:01] LABS: ABSOLUTE BASOPHILS # (AUTO) 0.1 10^3/uL (0.0-0.2); ABSOLUTE LYMPHOCYTES (AUTO) 2.2 10^3/uL (0.5-4.7); ABSOLUTE MONOCYTES (AUTO) 0.6 10^3/uL (0.1-1.4); ABSOLUTE NEUT (AUTO) 8.7 10^3/uL (1.7-8.2); BASOPHILS % (AUTO) 0.7 % (0-2); EOSINOPHILS % (AUTO) 0.4 % (0-6); HEMATOCRIT 31.1 % (36.0-47.0); HEMOGLOBIN 10.2 g/dL (12.0-15.5); HGB HCT DIFFERENCE -0.5; LYMPHOCYTES % (AUTO) 18.8 % (13-45); MEAN CORPUSCULAR HEMOGLOBIN 25.6 pg (27.0-33.4); MEAN CORPUSCULAR HGB CONC 32.8 g/dL (32.0-36.0); MEAN CORPUSCULAR VOLUME 78 fl (80-97); MONOCYTES % (AUTO) 5.5 % (3-13); RED BLOOD COUNT 3.98 10^6/uL (3.72-5.28); RED CELL DISTRIBUTION WIDTH 16.7 % (11.5-14.0); SEGMENTED NEUTROPHILS % (AUTO) 74.6 % (42-78); WHITE BLOOD COUNT 11.6 10^3/uL (4.0-10.5)
[2016-06-17] MEDS: RINGERS SOLUTION,LACTATED 1,000 ML IV PRN ×2 (23:07→23:12)
--- NOTE | 2016-06-18 01:49 | Delivery Summary ---
Del Sum A-C Datetime Report Generated by CPN: 06/18/2016 01:48 ADMISSION DATA Chief Complaint: Uterine Contractions Indication for Induction: Not Applicable Admission Impression: Term, Intrauterine ; Active Labor Admit Provider Comments: TErm labor. gbs neg. arom clear. epidural DELIVERY PERSONNEL Delivery Doctor:: Yee Wesley MD Labor and Delivery Nurse:: Ana Pritchett RN Labor and Delivery Nurse:: Anna Mendoza RN Sheet Metal Shop Foreman/JAVAN: Tatyana Geronimo, ST MATERNAL INFORMATION Delivery Anesthesia: Epidural Medications After Delivery: Pitocin Bolus-Please Comment; Pitocin Drip 20 Units/1000ml NSS; Other-Please Comment Meds After Delivery Comment: cytotec 1000mcg per rectum Estimated Blood Loss (ml): 350 Maternal Complications: None Provider Comments: over intact perineum, no lacs. live male infant ap9/9. loose nuchal times 2. spontaneous intact placenta 3vc. no complications LABOR SUMMARY EDC: 06/17/2016 00:00 No. Babies in Womb: 1 Attempted: No Labor Anesthesia: Epidural LABOR INFORMATION Reason for Induction: Not Applicable Onset of Labor: 06/17/2016 21:00 Complete Dilatation: 06/18/2016 00:13 Cervical Ripening Agents: Cytotec @ (Annotations: 1 mg Cytotec [place] for bleeding) Oxytocin: N/A Group B Beta Strep: negative Steroids Given: None Reason Steroids Not Administered: Not Applicable MEMBRANES Membranes Rupture Method: Artificial Rupture of Membranes: 06/18/2016 00:13 Length of Rupture (hr): 0.15 Amniotic Fluid Color: Clear Amniotic Fluid Amount: Moderate Amniotic Fluid Odor: Normal STAGES OF LABOR Stage 1 hr: 3 Stage 1 min: 13 Stage 2 hr: 0 Stage 2 min: 9 Stage 3 hr: 0 Stage 3 min: 3 Total Time in Labor hr: 3 Total Time in Labor min: 25 VAGINAL DELIVERY Episiotomy: None Laceration Extension: N/A Laceration Type: None Laceration Repair: Not Applicable CSECTION DELIVERY Primary Indication: N/A Secondary Indication: N/A CSection Incision: N/A BABY A INFORMATION Infant Delivery Date/Time: 06/18/2016 00:22 Method of Delivery: Vaginal Born in Route : No : N/A Forceps: N/A Vacuum Extraction: N/A Shoulder Dystocia : No PRESENTATION/POSITION BABY A Presentation: Cephalic Cephalic Presentation: Vertex Vertex Position: Right Occipital Anterior Breech Presentation: N/A PLACENTA INFORMATION BABY A Placenta Delivery Time : 06/18/2016 00:25 Placenta Method of Delivery: Spontaneous Placenta Status: Delivered SCORES BABY A Heart Rate 1 min: >100 bpm Resp Effort 1 min: Good Cry Reflex Irritability 1 min: Cough or Sneeze or Pulls Away Muscle Tone 1 min: Active Motion Color 1 min: Body [place], Extremities Blue Resuscitation Effort 1 min: Tactile Stimulation SCORE 1 MIN: 9 Heart Rate 5 min: >100 bpm Resp Effort 5 min: Good Cry Reflex Irritability 5 min: Cough or Sneeze or Pulls Away Muscle Tone 5 min: Active Motion Color 5 min: Body [place], Extremities Blue Resuscitation Effort 5 min: Tactile Stimulation SCORE 5 MIN: 9 INFORMATION BABY A Gestational Age at Delivery: 40.1 Gestational Status: Full Term- 39- 40.6 Weeks Infant Outcome : Liveborn Condition : Stable Sex: Male IDENTIFICATION BABY A Infant Verification Date/Time: 06/18/2016 00:55 ID Band Number: [id number] Mother's Name Verified: Yes RN Verifying Infant: [place], RN Additional Verifying Personnel: Esperanza Carty RN WEIGHT/LENGTH BABY A Infant Birthweight (gm): 3230 Infant Weight (lb): 7 Infant Weight (oz): 2 Infant Length (in): 20.25 Infant Length (cm): 51.44 CORD INFORMATION BABY A No. Cord Vessels: 3 Nuchal Cord : Around Neck x2, Loose Nuchal Cord- Other: right compound hand Cord Blood Taken: Yes-For Eval (Mom's Blood Type - or O+) Suction: Mouth ASSESSMENT BABY A Infant Complications: None Physical Findings at Delivery: Within Normal Limits Infant Respirations: Appears Normal Skin to Skin: Yes Skin to Skin Time (min): 70 Audio Video Repairer/ALS Called : No Care By: INOCENCIA Mendoza Transferred To: Remains with Mother BABY B INFORMATION : N/A SIGNATURES Signature: with User ID: [email or web address]
[2016-06-18] MEDS ORDERED: IBUPROFEN 800 MG TABLET ONE (01:57)
[2016-06-18] MEDS ORDERED: DIPH/PERTUSS(ACELL)/TETANUS VAC/PF 0.5 ML SYR (>=10YO) IM PRN (02:30)
[2016-06-18] MEDS ORDERED: ACETAMINOPHEN WITH CODEINE #3 TABLET PO PRN ×2 (02:30)
[2016-06-18] MEDS ORDERED: OXYTOCIN/NORMAL SALINE 1,000 ML IV PRN (02:30)
[2016-06-18] MEDS ORDERED: MEASLES,MUMPS&RUBELLA VACC/PF 0.5 ML VIAL SUBCUT PRN (02:30)
[2016-06-18] MEDS ORDERED: DIBUCAINE 1% OINTMENT 28 GM TP PRN (02:30)
[2016-06-18] MEDS ORDERED: MISOPROSTOL 0.2 MG TABLET PR PRN (02:30)
[2016-06-18] MEDS ORDERED: BENZOCAINE/MENTHOL AEROSOL SPRAY 56 ML TOP PRN (02:30)
[2016-06-18] MEDS ORDERED: ZOLPIDEM TARTRATE 5 MG TABLET PO PRN (02:30)
[2016-06-18 02:51] LABS: ABSOLUTE LYMPHOCYTES (AUTO) 1.8 10^3/uL (0.5-4.7); ABSOLUTE MONOCYTES (AUTO) 0.7 10^3/uL (0.1-1.4); ABSOLUTE NEUT (AUTO) 14.9 10^3/uL (1.7-8.2); BASOPHILS % (AUTO) 0.2 % (0-2); HEMATOCRIT 33.8 % (36.0-47.0); HEMOGLOBIN 11.1 g/dL (12.0-15.5); HGB HCT DIFFERENCE -0.5; LYMPHOCYTES % (AUTO) 10.4 % (13-45); MEAN CORPUSCULAR HEMOGLOBIN 25.6 pg (27.0-33.4); MEAN CORPUSCULAR HGB CONC 32.7 g/dL (32.0-36.0); MEAN CORPUSCULAR VOLUME 78 fl (80-97); MONOCYTES % (AUTO) 4.2 % (3-13); RED BLOOD COUNT 4.33 10^6/uL (3.72-5.28); RED CELL DISTRIBUTION WIDTH 16.9 % (11.5-14.0); SEGMENTED NEUTROPHILS % (AUTO) 85.2 % (42-78); WHITE BLOOD COUNT 17.5 10^3/uL (4.0-10.5)
--- NOTE | 2016-06-18 03:00 | Admission Physical ---
Datetime Report Generated by CPN: 06/18/2016 03:00 CURRENT ADMISSION Hx Assessment: The History has been Reviewed and is Current Chief Complaint: Uterine Contractions Indication for Induction: Not Applicable Admit Plan: Admit to Unit; Initiate Labor Protocol ALLERGIES Medication Allergies: No Medication Allergies: No Known Allergies (05/10/2016) Latex: No Latex Allergies Food Allergies: none Environmental Allergies: none OBSTETRICAL HISTORY EDC: 06/17/2016 00:00 : 3 Para: 2 Para: 2 Term: 2 : 0 SAB: 0 IAB: 0 Ectopic: 0 Livin Cesareans: 0 VBACs: 0 Multiple Births: 0 Gestational Diabetes: No Rh Sensitization: No Incompetent Cervix: No ULISES: No Infertility: No ART Treatment: No Uterine Anomaly: No IUGR: No Hx Previous C/S: No Macrosomia: No Hx Loss/Stillborn: No PIH: No Hx : No Placenta Previa/Abruption: No Depression/PP Depression: No PTL/PROM: No Post Hemorrhage: No Current Procedures: Ultrasound; NST Obstetrical History Comments: G1: 2011 female 5lbs 15 ounces G2: 2012 female 5 lbs 2 ounces G3: Current SEE RECORDS Alcohol: No Marijuana : No Cocaine: No Other Illicit Drugs: No Cigarettes: Never Smoker. 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 Surgery: No Heart Disease: No Hosp/Surgery: Yes Autoimmune Disorder: No Anesthetic Complications: No Kidney Disease: No Abnormal Pap Smear: No Neuro/Epilepsy: No Psychiatric Disorders: No Other Medical Diseases: No Hepatitis/Liver Disease: No Significant Family History: No Varicosities/Phlebitis: No Trauma/Violence : No Thyroid Dysfunction: No Medical History Comments: childbirth INFECTIOUS HISTORY Gonorrhea: No Genital Herpes: No Chlamydia: No Tuberculosis: No Syphilis: No Hepatitis: No HIV/AIDS Exposure: No Rash or Viral Illness: No HPV: No PHYSICAL EXAM General: Normal HEENT: Deferred Neurologic: Deferred Thyroid: Deferred Heart: Normal Lungs: Normal Breast: Deferred Back: Deferred Abdomen: Normal Genitourinary Exam: Normal Extremities: Normal DTRs: Normal Pelvic Type: Adequate Vital Signs: Reviewed; Within Normal Limits FETUS A EGA: 40.1 FHR Category: Category I Admit Comment: TErm labor. gbs neg. arom clear. epidural PLANS FOR LABOR AND DELIVERY Labor and Delivery: None Pain Management: Epidural Feeding Preference: Breast Benefit of Breast Feed Discussed: Yes Circumcision: No INFORMED CONSENT Signature: with User ID: [email or web address]
[2016-06-18 03:02] LABS: ALANINE AMINOTRANSFERASE 20 U/L (9-52); ALBUMIN 3.1 g/dL (3.5-5.0); ALKALINE PHOSPHATASE 153 U/L (38-126); ANION GAP 13 (5-19); ASPARTATE AMINO TRANSFERASE 26 U/L (14-36); BILIRUBIN,DIRECT 0.2 mg/dL (0.0-0.4); BILIRUBIN,TOTAL 0.4 mg/dL (0.2-1.3); BLOOD UREA NITROGEN 7 mg/dL (7-20); CALCIUM 8.8 mg/dL (8.4-10.2); CARBON DIOXIDE 19 mmol/L (22-30); CHLORIDE 108 mmol/L (98-107); CREATININE RESULT 0.62 mg/dL (0.52-1.25); GLUCOSE 96 mg/dL (75-110); LDH 590 U/L (313-618); POTASSIUM 4.4 mmol/L (3.6-5.0); SODIUM 140.1 mmol/L (137-145); TOTAL PROTEIN 5.9 g/dL (6.3-8.2); URIC ACID 5.3 mg/dL (2.5-6.2)
[2016-06-18] MEDS: IBUPROFEN 800 MG TABLET PO SCH ×3 (06:18→21:07)
[2016-06-18] MEDS: PRENATAL VITAMIN W-O CA NO5/FE FUMARATE/FA CAPSULE PO SCH (09:27)
[2016-06-18] MEDS: FERROUS SULFATE 325 MG TABLET PO SCH ×2 (09:27→18:11)
[2016-06-18] MEDS: SENNOSIDES/DOCUSATE 8.6-50 MG 1 EACH TABLET PO SCH (09:29)
[2016-06-18] MEDS: DOCUSATE SODIUM 100 MG CAPSULE PO SCH ×2 (09:29→18:12)
--- NOTE | 2016-06-18 11:22 | PDOC PROGRESS REPORT ---
Subjective-OB Subjective: Post Delivery Day: 26 year old. Denies any needs at this time ff@u-1 mild lochia no pain wbc elevated encouraged pt to increase hydration- reviewed labs and mild temp at 99.5 recheck wbc in am prior to discharge anticipate d/c in AM Physical Exam (OB) Vital Signs: Temp Pulse Resp BP Pulse Ox 99.5 F 93 16 129/62 H 100 06/18/16 07:42 06/18/16 07:42 06/18/16 07:42 06/18/16 07:42 06/18/16 07:42 Intake & Output 06/17/16 06/18/16 06/19/16 06:59 06:59 06:59 Weight 65 kg - Lochia Lochia Amount: Scant < 10 ml Lochia Color: Rubra/Red - Abdomen Description: Tender, Soft Hernia Present: No Fundal Description: Firm, Midline Fundal Height: u/u - u/2 Objective-Diagnostic Laboratory: 06/18/16 02:42 06/18/16 02:42 06/17/16 06/17/16 06/18/16 21:50 21:50 02:42 WBC 11.6 H 17.5 H RBC 3.98 4.33 Hgb 10.2 L 11.1 L Hct 31.1 L 33.8 L MCV 78 L 78 L MCH 25.6 L 25.6 L MCHC 32.8 32.7 RDW 16.7 H 16.9 H Plt Count 182 210 Seg Neutrophils % 74.6 85.2 H Lymphocytes % 18.8 10.4 L Monocytes % 5.5 4.2 Eosinophils % 0.4 0.0 Basophils % 0.7 0.2 Absolute Neutrophils 8.7 H 14.9 H Absolute Lymphocytes 2.2 1.8 Absolute Monocytes 0.6 0.7 Absolute Eosinophils 0.0 0.0 Absolute Basophils 0.1 0.0 Sodium Potassium Chloride Carbon Dioxide Anion Gap BUN Creatinine Est GFR ( Amer) Est GFR (Non-Af Amer) Glucose Uric Acid Calcium Total Bilirubin AST ALT Alkaline Phosphatase Total Protein Albumin Blood Type O POSITIVE Antibody Screen NEGATIVE 06/18/16 02:42 WBC RBC Hgb Hct MCV MCH MCHC RDW Plt Count Seg Neutrophils % Lymphocytes % Monocytes % Eosinophils % Basophils % Absolute Neutrophils Absolute Lymphocytes Absolute Monocytes Absolute Eosinophils Absolute Basophils Sodium 140.1 Potassium 4.4 Chloride 108 H Carbon Dioxide 19 L Anion Gap 13 BUN 7 Creatinine 0.62 Est GFR ( Amer) > 60 Est GFR (Non-Af Amer) > 60 Glucose 96 Uric Acid 5.3 Calcium 8.8 Total Bilirubin 0.4 AST 26 ALT 20 Alkaline Phosphatase 153 H Total Protein 5.9 L Albumin 3.1 L Blood Type Antibody Screen
[2016-06-19] MEDS: IBUPROFEN 800 MG TABLET PO SCH ×3 (06:07→21:12)
[2016-06-19 08:43] LABS: HEMOGLOBIN 9.7 g/dL (12.0-15.5); HGB HCT DIFFERENCE -0.9; MEAN CORPUSCULAR HEMOGLOBIN 25.7 pg (27.0-33.4); MEAN CORPUSCULAR HGB CONC 32.4 g/dL (32.0-36.0); MEAN CORPUSCULAR VOLUME 79 fl (80-97); RED BLOOD COUNT 3.78 10^6/uL (3.72-5.28); RED CELL DISTRIBUTION WIDTH 17.4 % (11.5-14.0); WHITE BLOOD COUNT 10.9 10^3/uL (4.0-10.5)
[2016-06-19] MEDS: PRENATAL VITAMIN W-O CA NO5/FE FUMARATE/FA CAPSULE PO SCH (09:29)
[2016-06-19] MEDS: SENNOSIDES/DOCUSATE 8.6-50 MG 1 EACH TABLET PO SCH (09:30)
[2016-06-19] MEDS: FERROUS SULFATE 325 MG TABLET PO SCH ×2 (09:30→18:27)
[2016-06-19] MEDS: DOCUSATE SODIUM 100 MG CAPSULE PO SCH ×2 (09:31→18:27)
--- NOTE | 2016-06-19 10:06 | PDOC PROGRESS REPORT ---
Subjective-OB Subjective: Post Delivery Day: 26 year old. Denies any needs at this time Physical Exam (OB) Vital Signs: Temp Pulse Resp BP Pulse Ox 97.8 F 83 17 137/84 H 99 06/19/16 08:44 06/19/16 08:44 06/19/16 08:44 06/19/16 08:44 06/19/16 08:44 Intake & Output 06/18/16 06/19/16 06/20/16 06:59 06:59 06:59 Weight 65 kg - Lochia Lochia Amount: Small 10-25 ml Lochia Color: Rubra/Red - Abdomen Description: Soft, Round Hernia Present: No Bowel Sounds: Normoactive [place] Presence: Present Stool: No Fundal Description: Firm, Midline Fundal Height: u/u - u/2 Objective-Diagnostic Laboratory: 06/19/16 08:37 06/18/16 02:42 06/19/16 08:37 WBC 10.9 H RBC 3.78 Hgb 9.7 L Hct 30.0 L MCV 79 L MCH 25.7 L MCHC 32.4 RDW 17.4 H Plt Count 171
[2016-06-20] MEDS: IBUPROFEN 800 MG TABLET PO SCH ×3 (05:03→21:31)
[2016-06-20] MEDS: DOCUSATE SODIUM 100 MG CAPSULE PO SCH ×2 (09:01→17:27)
[2016-06-20] MEDS: PRENATAL VITAMIN W-O CA NO5/FE FUMARATE/FA CAPSULE PO SCH (09:01)
[2016-06-20] MEDS: FERROUS SULFATE 325 MG TABLET PO SCH ×2 (09:01→17:27)
[2016-06-20] MEDS: SENNOSIDES/DOCUSATE 8.6-50 MG 1 EACH TABLET PO SCH (09:01)
--- NOTE | 2016-06-20 09:34 | PDOC DISCHARGE SUMMARY ---
Final Diagnosis Discharge Date: 06/20/16 - Final Diagnosis (1) Delivery normal Is this a current diagnosis for this admission?: Yes Discharge Data - Discharge Medication Home Medications: Vit/Iron Fumarate/FA [ Tablet] 1 each PO DAILY 05/10/16 Reason(s) for Admission: Onset of Labor Procedures: NST Intrapartum Procedure(s): Spontaneous Vaginal Delivery - Diagnosis Test Laboratory: Temp Pulse Resp BP Pulse Ox 98.4 F 109 H 18 140/79 H 98 06/20/16 07:31 06/20/16 07:31 06/20/16 07:31 06/20/16 07:31 06/20/16 07:31 06/17/16 06/18/16 06/19/16 21:50 02:42 08:37 RBC 3.98 4.33 3.78 Hgb 10.2 L 11.1 L 9.7 L Hct 31.1 L 33.8 L 30.0 L - Discharge information/Instructions Discharge Activity: Activity As Tolerated, Balance Activity w/Rest, Keep Legs Elevated, No Lifting Over 10 Pounds, Pelvic Rest, Slowly Increase Activity, No tub bath, Walk Frequently Discharge Diet: Regular Disposition: HOME, SELF-CARE Follow up with: [facility] in: 4, Weeks
[2016-06-20 13:25] LABS: HEMATOCRIT 30.6 % (36.0-47.0); HGB HCT DIFFERENCE -0.6; MEAN CORPUSCULAR HEMOGLOBIN 25.6 pg (27.0-33.4); MEAN CORPUSCULAR HGB CONC 32.6 g/dL (32.0-36.0); MEAN CORPUSCULAR VOLUME 79 fl (80-97); RED BLOOD COUNT 3.89 10^6/uL (3.72-5.28); RED CELL DISTRIBUTION WIDTH 16.9 % (11.5-14.0)
[2016-06-20 16:12] LABS: APPEARANCE,URINE SLIGHTLY-CLOUDY; BILIRUBIN,URINE NEGATIVE (NEGATIVE); GLUCOSE, URINE NEGATIVE (NEGATIVE); KETONES,URINE NEGATIVE (NEGATIVE); LEUKOCYTE ESTERASE,URINE LARGE (NEGATIVE); NITRITE,URINE NEGATIVE (NEGATIVE); PROTEIN,URINE 100 mg/dL (NEGATIVE); URINE SPECIFIC GRAVITY 1.002; UROBILINOGEN,URINE NEGATIVE mg/dL (<2.0)
--- NOTE | 2016-06-20 17:53 | PDOC PROGRESS REPORT ---
Subjective Progress Note for:: 06/20/16 Subjective:: called to see pt re tachycardia and temp of 99.5. Notes mild dysuria and scratchy throat. Physical Exam - Physical Exam Vital Signs: Temp Pulse Resp BP Pulse Ox 99.2 F 152 H 20 144/80 H 99 06/20/16 12:46 06/20/16 12:46 06/20/16 12:46 06/20/16 12:46 06/20/16 12:46 Intake & Output 06/19/16 06/20/16 06/21/16 06:59 06:59 06:59 Intake Total 450 Balance 450 General appearance: PRESENT: no acute distress - back-no cva tenderness fundus nontender Result Laboratory Results: 06/20/16 13:11 06/18/16 02:42 06/20/16 06/20/16 13:11 15:55 WBC 14.0 H RBC 3.89 Hgb 10.0 L Hct 30.6 L MCV 79 L MCH 25.6 L MCHC 32.6 RDW 16.9 H Plt Count 189 Urine Color RED Urine Appearance SLIGHTLY-CLOUDY Urine pH 6.0 Ur Specific [place] 1.002 Urine Protein 100 H Urine Glucose (UA) NEGATIVE Urine Ketones NEGATIVE Urine Blood LARGE H Urine Nitrite NEGATIVE Ur Leukocyte Esterase LARGE H Urine WBC (Auto) 117 Urine RBC (Auto) 12 Assessment & Plan - Diagnosis (1) Urinary tract infection Plan: iv ancef and ivf tonight...repeat cbc in am. Possible d/c home tomorrow on oral abx if improving.
[2016-06-20] MEDS ORDERED: CEFAZOLIN 2 GM/D5W RTU 2 GM/50 ML RTUPB IV ONE (19:00)
[2016-06-20] MEDS ORDERED: RINGERS SOLUTION,LACTATED 500 ML IV ONE (19:00)
[2016-06-20] MEDS: RINGERS SOLUTION,LACTATED 1,000 ML IV PRN ×2 (19:24→23:43)
--- NOTE | 2016-06-20 22:08 | EKG REPORT ---
SEVERITY:- OTHERWISE NORMAL ECG - SINUS TACHYCARDIA : Confirmed by: Marion Hirsch MD 20-Jun-2016 22:06:31
[2016-06-20] MEDS: CEFAZOLIN 1 GM/D5W RTU 1 GM/50 ML RTUPB IV SCH (23:43)
[2016-06-21] MEDS ORDERED: CEFAZOLIN 2 GM/D5W RTU 2 GM/50 ML RTUPB IV SCH
[2016-06-21] MEDS: IBUPROFEN 800 MG TABLET PO SCH ×2 (05:10→13:36)
[2016-06-21] MEDS: CEFAZOLIN 1 GM/D5W RTU 1 GM/50 ML RTUPB IV SCH ×2 (05:11→12:23)
[2016-06-21 07:40] LABS: ABSOLUTE EOSINOPHILS # (AUTO) 0.1 10^3/uL (0.0-0.6); ABSOLUTE LYMPHOCYTES (AUTO) 1.6 10^3/uL (0.5-4.7); ABSOLUTE MONOCYTES (AUTO) 0.5 10^3/uL (0.1-1.4); BASOPHILS % (AUTO) 0.3 % (0-2); EOSINOPHILS % (AUTO) 1.3 % (0-6); HEMATOCRIT 27.2 % (36.0-47.0); HEMOGLOBIN 8.7 g/dL (12.0-15.5); HGB HCT DIFFERENCE -1.1; LYMPHOCYTES % (AUTO) 13.9 % (13-45); MEAN CORPUSCULAR HEMOGLOBIN 25.5 pg (27.0-33.4); MEAN CORPUSCULAR HGB CONC 32.1 g/dL (32.0-36.0); MEAN CORPUSCULAR VOLUME 79 fl (80-97); MONOCYTES % (AUTO) 4.8 % (3-13); RED BLOOD COUNT 3.42 10^6/uL (3.72-5.28); RED CELL DISTRIBUTION WIDTH 17.6 % (11.5-14.0); SEGMENTED NEUTROPHILS % (AUTO) 79.7 % (42-78); WHITE BLOOD COUNT 11.3 10^3/uL (4.0-10.5)
[2016-06-21] MEDS: PRENATAL VITAMIN W-O CA NO5/FE FUMARATE/FA CAPSULE PO SCH (10:06)
[2016-06-21] MEDS: FERROUS SULFATE 325 MG TABLET PO SCH (10:06)
[2016-06-21] MEDS: DOCUSATE SODIUM 100 MG CAPSULE PO SCH (10:07)
[2016-06-21] MEDS: SENNOSIDES/DOCUSATE 8.6-50 MG 1 EACH TABLET PO SCH (10:07)
[2016-06-21 12:06] VITALS: BP 158/99
[2016-06-21] MEDS ORDERED: NIFEDIPINE 30 MG TAB.ER.24 PO ONE (14:30)
--- NOTE | 2016-06-21 15:30 | PDOC DISCHARGE SUMMARY ---
Final Diagnosis Discharge Date: 06/21/16 - Final Diagnosis (1) Urinary tract infection Is this a current diagnosis for this admission?: Yes (2) Delivery normal Is this a current diagnosis for this admission?: Yes (3) Hypertension affecting Is this a current diagnosis for this admission?: Yes Discharge Data - Discharge Medication Home Medications: Vit/Iron Fumarate/FA [ Tablet] 1 each PO DAILY 05/10/16 Ibuprofen [Motrin 800 mg Tablet] 800 mg PO Q8 #60 tablet 06/20/16 Cephalexin Monohydrate [Keflex 500 mg Capsule] 500 mg PO BID #14 capsule Docusate Sodium [Colace 100 mg Capsule] 100 mg PO BID #60 capsule 06/21/16 Ferrous Sulfate [Feosol 325 mg Tablet] 325 mg PO BID #60 tablet 06/21/16 Nifedipine [Procardia Xl 30 mg Tablet] 30 mg PO DAILY #30 tab.er.24 06/21/16 Reason(s) for Admission: Onset of Labor, Other - suspected UTI after delivery and prior to discharge Procedures: Ultrasound Intrapartum Procedure(s): Spontaneous Vaginal Delivery - Diagnosis Test Laboratory: Temp Pulse Resp BP Pulse Ox 97.9 F 114 H 18 158/99 H 99 06/21/16 14:01 06/21/16 14:01 06/21/16 14:01 06/21/16 14:01 06/21/16 14:01 06/17/16 06/18/16 06/19/16 21:50 02:42 08:37 RBC 3.98 4.33 3.78 Hgb 10.2 L 11.1 L 9.7 L Hct 31.1 L 33.8 L 30.0 L 06/20/16 06/21/16 13:11 07:28 RBC 3.89 3.42 L Hgb 10.0 L 8.7 L Hct 30.6 L 27.2 L - Discharge information/Instructions Discharge Activity: Activity As Tolerated, Balance Activity w/Rest, Keep Legs Elevated, No Lifting Over 10 Pounds, Pelvic Rest, Slowly Increase Activity, No tub bath, Walk Frequently Discharge Diet: Regular Disposition: HOME, SELF-CARE Follow up with: [facility] in: 4, Days - blood pressure check
--- NOTE | 2016-06-22 12:32 | L&D General Admission ---
General Admit Datetime Report Generated by CPN: 06/22/2016 12:32 Patient Age: 26 (04/18/2016 09:36:QS system process) EDC: 06/17/2016 00:00 (05/10/2016 22:18:Indira Murillo RN) : 3 (05/10/2016 22:18:Zita Patino RN) Para: 2 (05/11/2016 00:31:Zita Patino RN) Para: 2 (05/10/2016 22:18:Zita Patino RN) Term: 2 (05/10/2016 22:18:Zita Patino RN) : 0 (05/10/2016 22:18:Zita Patino RN) Spontaneous Abortions: 0 (05/10/2016 22:18:Zita Patino RN) Induced Abortions: 0 (05/10/2016 22:18:Zita Patino RN) Livin (05/10/2016 22:18:Zita Patino RN) Cesareans: 0 (05/10/2016 22:18:Zita Patino RN) VBACs: 0 (05/10/2016 22:18:Zita Patino RN) Ectopic: 0 (05/10/2016 22:18:Zita Patino RN) Multiple Births: 0 (05/10/2016 22:18:Zita Patino RN) Baby, Number in Womb: 1 (05/11/2016 00:31:Zita Patino RN) Baby, Number in Womb: 1 (05/10/2016 22:18:Zita Patino RN) Primary District Loss Prevention Manager: [facility] (05/10/2016 22:18:Zita Patino RN) Adequate Care: Yes (05/10/2016 22:18:Zita Patino RN) Medication Allergy: No (05/10/2016 22:18:Zita Patino RN) Medication Allergies: No Known Allergies (05/10/2016) (05/10/2016 18:28:QS system process) Latex Allergy: No Latex Allergies (05/10/2016 22:18:Zita Patino RN) Food Allergies: none (05/10/2016 22:18:Zita Patino RN) Environmental Allergies: none (05/10/2016 22:18:Zita Patino RN) Primary Language: Palauan (05/10/2016 22:18:Zita Patino RN) Medical Tx Preferred Language: Palauan (05/10/2016 22:18:Zita Patino RN) Address: [address] [place] [id number] (04/18/2016 09:36:QS system process) Zipcode: [address] (04/18/2016 09:36:QS system process) Home (04/18/2016 09:36:QS system process) Work (05/10/2016 22:14:QS system process) Work (04/18/2016 09:36:QS system process) SSN: [id number] (04/18/2016 09:36:QS system process) Next of Kin Name: ANDREW PUCKETT (04/18/2016 09:36:QS system process) Next of Kin (04/18/2016 09:36:QS system process) Next of Kin Relationship: SPO (04/18/2016 09:36:QS system process) Date of : 1990 (04/18/2016 09:36:QS system process) Marital Status: (04/18/2016 09:36:QS system process) Sex: Female (04/18/2016 09:36:QS system process) Race: (04/18/2016 09:36:QS system process) Ethnicity: Non- or (04/18/2016 09:36:QS system process) Jainism: None (04/18/2016 09:36:[facility] system process) Alcohol: No (05/10/2016 22:18:Zita Patino RN) Cigarettes: Never Smoker. [id number] (05/10/2016 22:18:Zita Patino RN) Marijuana: No (05/10/2016 22:18:Zita Patino RN) Cocaine: No (05/10/2016 22:18:Zita Patino RN) Other Illicit Drugs: No (05/10/2016 22:18:Zita Patino RN) Influenza Vaccine: Yes (05/10/2016 22:18:Zita Patino RN) Pneumococcal Vaccine: No (05/10/2016 22:18:Zita Patino RN) Tetanus Vaccine: Yes (05/10/2016 22:18:Zita Patino RN) Tdap Vaccine: Yes (05/10/2016 22:18:Zita Patino RN) Hepatitis B Vaccine: Yes (05/10/2016 22:18:Zita Patino RN) Broadcast News Producer: Dr Wolfe (05/10/2016 22:18:Zita Patino RN) Feeding Preference: Breast (05/10/2016 22:18:Zita Patino RN) Benefit of Breast Feed Discussed: Yes (05/10/2016 22:18:Zita Patino RN) Circumcision: No (05/10/2016 22:18:Zita Patino RN) Classes Attended: No (05/10/2016 22:18:Zita Patino RN) Tubal Ligation: No (05/10/2016 22:18:Zita Patino RN) Tubal Authorization Signed: N/A (05/10/2016 22:18:Zita Patino RN) Consent: N/A (05/10/2016 22:18:Zita Patino RN) Consent Signed: N/A (05/10/2016 22:18:Zita Patino RN) Pain Management Plans: Epidural (05/10/2016 22:18:Zita Patino RN) Plans for Labor and Delivery: None (05/10/2016 22:18:Zita Patino RN) Support Person: Miguelangel (05/10/2016 22:18:Zita Patino RN) Support Person Relationship: (05/10/2016 22:18:Zita Patino RN) Cultural/Spritual Practice: No (05/10/2016 22:18:Zita Patino RN) Spir/Cult Dietary Needs: No (05/10/2016 22:18:Zita Patino RN) Living Arrangements: House (05/10/2016 22:18:Zita Patino RN) Adequate Access to:: Electric; Heat; Refrigeration; Plumbing/Running water; Phone; Transportation (05/10/2016 22:18:Zita Patino RN) WIC Program: No (05/10/2016 22:18:Zita Patino RN) Discharge Office Executive Person: Miguelangel (05/10/2016 22:18:Zita Patino RN) Person to Help after Discharge: Miguelangel (05/10/2016 22:18:Zita Patino RN) Currently Using Commun Resources: Yes (05/10/2016 22:18:Zita Patino RN) Specify Current Resource Used: Medicaid (05/10/2016 22:18:Ztia Patino RN) Outside Agency/Dredge Pipeman: No (05/10/2016 22:18:Zita Patino RN) Car Seat for Discharge: No (05/10/2016 22:18:Zita Patino RN) Adoption Requested: No (05/10/2016 22:18:Zita Patino RN) Pt Contact w/ Post : N/A (05/10/2016 22:18:Zita Patino RN) Blood Type: O Positive (05/10/2016 22:18:Zita Patino RN) Antibody Screen: negative (05/10/2016 22:18:Zita Patino RN) Hemoglobin: 10.9 L (05/10/2016 23:39:QS system process) Hematocrit: 33.3 L (05/10/2016 23:39:QS system process) MCV: 81 (05/10/2016 23:39:QS system process) Gonorrhea: Negative (05/10/2016 22:18:Zita Patino RN) Chlamydia: Negative (05/10/2016 22:18:Zita Patino RN) RPR/VDRL: Nonreactive (05/10/2016 22:18:Zita Patino RN) HIV Results: negative (05/10/2016 22:18:Zita Patino RN) Hepatitis B: Negative (05/10/2016 22:18:Zita Patino RN) Rubella: Immune (05/10/2016 22:18:Zita Patino RN) Previous Procedures: Ultrasound; NST (05/10/2016 22:18:Zita Patino RN) Current Procedures: Ultrasound; NST (05/10/2016 22:18:Zita Patino RN) History of Previous : No (05/10/2016 22:18:Zita Patino RN) History of Gestational Diabetes: No (05/10/2016 22:18:Zita Patino RN) History of PIH: No (05/10/2016 22:18:Zita Patino RN) History of Incompetent Cervix: No (05/10/2016 22:18:Zita Patino RN) History of Placenta Previa/Abrup: No (05/10/2016 22:18:Zita Patino RN) History of Macrosomia: No (05/10/2016 22:18:Zita Patino RN) History of IUGR: No (05/10/2016 22:18:Zita Patino RN) History of Hemorrhage: No (05/10/2016 22:18:Zita Patino RN) History of Loss/Stillborn: No (05/10/2016 22:18:Zita Patino RN) History of : No (05/10/2016 22:18:Zita Patino RN) History of D (Rh) Sensitization: No (05/10/2016 22:18:Zita Patino RN) History Recurrent Loss/Stillborn: No (05/10/2016 22:18:Zita Patino RN) History Depression/PP Depression: No (05/10/2016 22:18:Zita Patino RN) History of Uterine Anomaly/ULISES: No (05/10/2016 22:18:Zita Patino RN) History of Infertility: No (05/10/2016 22:18:Zita Patino RN) History of ART Treatment: No (05/10/2016 22:18:Zita Patino RN) History of ULISES: No (05/10/2016 22:18:Zita Patino RN) Comments Obstetrical History: G1: 2011 female 5lbs 15 ounces G2: 2012 female 5 lbs 2 ounces G3: Current (05/10/2016 22:18:Zita Patino RN) Med Hx Diabetes: No (05/10/2016 22:18:Zita Patino RN) Med Hx Hypertension: Yes (05/10/2016 22:18:Zita Patino RN) Med Hx Heart Disease: No (05/10/2016 22:18:Zita Patino RN) Med Hx Autoimmune Disorder: No (05/10/2016 22:18:Zita Patino RN) Med Hx Kidney Disease/UTI: No (05/10/2016 22:18:Zita Patino RN) Med Hx Neurologic/Epilepsy: No (05/10/2016 22:18:Zita Patino RN) Med Hx Psychiatric Disorders: No (05/10/2016 22:18:Zita Patino RN) Med Hx Hepatitis/Liver Disease: No (05/10/2016 22:18:Zita Patino RN) Med Hx Varicosities/Phlebitis: No (05/10/2016 22:18:Zita Patino RN) Med Hx Thyroid Dysfunction: No (05/10/2016 22:18:Zita Patino RN) Med Hx Trauma/Violence: No (05/10/2016 22:18:Zita Patino RN) Med Hx Blood Transfusion: No (05/10/2016 22:18:Zita Patino RN) Med Hx Pulmonary (Asthma,TB): No (05/10/2016 22:18:Zita Patino, RN) Med Hx Breast: No (05/10/2016 22:18:Zita Patino RN) Med Hx INSULATOR HELPER Surgery: No (05/10/2016 22:18:Zita Patino RN) Med Hx Hospitalization/Surgery: Yes (05/10/2016 22:18:Zita Patino RN) Med Hx Anesthetic Complications: No (05/10/2016 22:18:Zita Patino RN) Med Hx Abnormal Pap Smear: No (05/10/2016 22:18:Zita Patino RN) Other Medical Diseases: No (05/10/2016 22:18:Zita Patino RN) Med Hx Significant Family Hx: No (05/10/2016 22:18:Zita Patino RN) Details of Med/Surg Hx: childbirth (05/10/2016 22:18:Zita Patino RN) Inf Hx Gonorrhea: No (05/10/2016 22:18:Zita Patino RN) Inf Hx Chlamydia: No (05/10/2016 22:18:Zita Patino RN) Inf Hx Syphilis: No (05/10/2016 22:18:Zita Patino RN) Inf Hx HIV/AIDS: No (05/10/2016 22:18:Zita Patino RN) Inf Hx Human Papilloma Virus: No (05/10/2016 22:18:Zita Patino RN) Inf Hx Pt/Partner Genital Herpes: No (05/10/2016 22:18:Zita Patino RN) Inf Hx Tuberculosis/Exposure: No (05/10/2016 22:18:Zita Patino RN) Inf Hx Hepatitis B,C: No (05/10/2016 22:18:Zita Patino RN) Inf Hx Rash or Viral Illness: No (05/10/2016 22:18:Zita Patino RN) Gen Hx Age >=35 at [place]: No (05/10/2016 22:18:Zita Patino RN) Gen Hx Thalassemia: No (05/10/2016 22:18:Zita Patino RN) Gen Hx Congenital Heart Defect: No (05/10/2016 22:18:Zita Patino RN) Gen Hx Neural Tube Defect: No (05/10/2016 22:18:Zita Patino RN) Gen Hx Down's Syndrome: No (05/10/2016 22:18:Zita Patino RN) Gen Hx Neil-Sachs: No (05/10/2016 22:18:Zita Patino RN) Gen Hx Tres: No (05/10/2016 22:18:Zita Patino RN) Gen Hx Familial Dysautonomia: No (05/10/2016 22:18:Zita Patino RN) Gen Hx Sickle Cell Disease/Trait: No (05/10/2016 22:18:Zita Patino RN) Gen Hx Hemophilia/Blood Disorder: No (05/10/2016 22:18:Zita Patino RN) Gen Hx Muscular Dystrophy: No (05/10/2016 22:18:Zita Patino RN) Gen Hx Cystic Fibrosis: No (05/10/2016 22:18:Zita Patino RN) Gen Hx Huntingtons Chorea: No (05/10/2016 22:18:Zita Patino RN) Gen Hx Mental Retardation/Autism: No (05/10/2016 22:18:Zita Patino RN) Gen Hx Tested for Fragile X: No (05/10/2016 22:18:Zita Patino RN) Gen Hx Other Inher/Chromosomal: No (05/10/2016 22:18:Zita Patino RN) Gen Hx Maternal Metabolic DO: No (05/10/2016 22:18:iZta Patino RN) Gen Hx Pt Father or FOB Defect: No (05/10/2016 22:18:Zita Patino RN) Gen Hx Other Genetic History: No (05/10/2016 22:18:Zita Patino RN) Gen Hx Drugs/Meds since LMP: No (05/10/2016 22:18:Zita Patino RN)
== END 2016-06-21 15:54 | disposition home or self-care (01) | DRG 774 ==
LOC: LC 20:14 → LR 21:33 → 2S 06-18 02:50
PROVIDERS: ADMIT Obstetrics & Gynecology; ATTEND Obstetrics & Gynecology
PROC: 4A1HXCZ Monitoring of Products of Conception, Cardiac Rate, External Approach (ICD-10-PCS; 2016-06-17)
PROC: 3E0P7GC Introduction of Other Therapeutic Substance into Female Reproductive, Via Natural or Artificial Opening (ICD-10-PCS; principal; 2016-06-18)
PROC: 10E0XZZ Delivery of Products of Conception, External Approach (ICD-10-PCS; 2016-06-18)
PROC: 10907ZC Drainage of Amniotic Fluid, Therapeutic from Products of Conception, Via Natural or Artificial Opening (ICD-10-PCS; 2016-06-18)
DX: O16.4 Unspecified maternal hypertension, complicating childbirth (principal); O75.3 Other infection during labor; N39.0 Urinary tract infection, site not specified; O69.81X0 Labor and delivery complicated by cord around neck, without compression, not applicable or unspecified; O32.6XX0 Maternal care for compound presentation, not applicable or unspecified; Z3A.40 40 weeks gestation of pregnancy; Z37.0 Single live birth
CPT/HCPCS: 36415; 80053; 81001; 83615; 84550; 85025; 85027; 86592; 86850; 86900; 86901; 87070; 87086; 87880; 93005; 93010; J0690; J2370; J2590; J3010; J3490; J7120

== ENCOUNTER 2017-09-19 18:13 | Emergency (ER) | payer MEDICAID, OTHER ==
[2017-09-19 18:26] VITALS: BP 144/81
--- NOTE | 2017-09-19 19:39 | ER Document Report ---
ED General - General Mode of Arrival: Ambulatory Information source: Patient TRAVEL OUTSIDE OF THE [place] IN LAST 30 DAYS: No <RODNYE WATTERS - Last Filed: 09/19/17 22:48> <KACEY MCKEON - Last Filed: 09/20/17 01:39> - General Chief Complaint: Pelvic Pain Stated Complaint: PELVIC PAIN Time Seen by Provider: 09/19/17 19:29 Notes: 27 y.o female presents to the ED with an intermittent dull pain and tingling to her RT pelvic area. Pt reports that she is 6 weeks , her last period was August 05. She states that she feels a heavy feeling to her RT pelvic area as she walks. Pt reports vomiting. She denies any rashes. Pt reports that she still has her appendix. She denies any hx of kidney stones. She denies any cough , congestion, vaginal bleeding, discharge or dysuria. Pt reports that she has her first appointment with OBGYN on Saturday for a formal ultrasound. (RODNEY WATTERS) - Related Data Allergies/Adverse Reactions: No Known Allergies Allergy (Verified 09/19/17 18:14) Past Medical History - General Information source: Patient - Social History Smoking Status: Never Smoker Chew tobacco use (# tins/day): No Family History: Reviewed & Not Pertinent Renal/ Medical History: Denies: Hx Peritoneal Dialysis <RODNEY WATTERS - Last Filed: 09/19/17 22:48> Review of Systems - Review of Systems Constitutional: No symptoms reported EENT: denies: Nose congestion Cardiovascular: No symptoms reported Respiratory: denies: Cough Gastrointestinal: See HPI, Abdominal pain, Vomiting Genitourinary: See HPI. denies: Dysuria Female Genitourinary: See HPI, Last menstrual period - August 05, . denies: Vaginal discharge, Vaginal bleeding Musculoskeletal: No symptoms reported Skin: See HPI. denies: Rash Hematologic/Lymphatic: No symptoms reported Neurological/Psychological: See HPI, Tingling -: Yes All other systems reviewed and negative <RODNEY WATTERS - Last Filed: 09/19/17 22:48> Physical Exam <RODNEY WATTERS - Last Filed: 09/19/17 22:48> <KACEY MCKEON - Last Filed: 09/20/17 01:39> - Vital signs Vitals: Temp Pulse Resp BP Pulse Ox 98.8 F 114 H 16 144/81 H 100 09/19/17 18:20 09/19/17 18:20 09/19/17 18:20 09/19/17 18:20 09/19/17 18:20 - Notes Notes: Physical Exam: General: Alert, appears well. HEENT: Normocephalic. Atraumatic. PERRL. Extraocular movements intact. Oropharynx clear. Neck: Supple. Non-tender. Respiratory: No respiratory distress. Clear and equal breath sounds bilaterally. Cardiovascular: Mild tachycardic rate and regular rhythm. Abdominal: Normal Inspection. Non-tender. No distension. Normal Bowel Sounds. Back: Non-tender. No deformity or step off. Extremities: Moves all four extremities. Upper extremities: Normal inspection. Normal ROM. Lower extremities: Normal inspection. No edema. Normal ROM. Normal gait. Neurological: Normal cognition. AAOx3. Normal speech. Psychological: Normal affect. Normal Mood. Skin: Warm. Dry. Normal color. (RODNEY WATTERS) Course - Laboratory Result Diagrams: 09/19/17 19:40 09/19/17 19:40 <RODNEY WATTERS - Last Filed: 09/19/17 22:48> - Laboratory Result Diagrams: 09/19/17 19:40 09/19/17 19:40 <KACEY MCKEON - Last Filed: 09/20/17 01:39> - Re-evaluation Re-evalutation: 09/19/17 21:31 upon discharge the pt was able to ambulate well, without any distress. (RODNEY WATTERS) 09/19/17 21:17 Patient's labs unremarkable. Ultrasound shows live intrauterine . Exam revealed possible fullness with palpation. Patient pain is vague and intermittent in nature. Has been going on for several days. Discussed with patient to use simethicone [id number] for gas drops to see if this improves patient's symptoms. Also advised to use Metamucil daily drink plenty of water. Reglan prescription provided. (KACEY MCKEON) - Vital Signs Vital signs: Temp Pulse Resp BP Pulse Ox 98.8 F 114 H 16 144/81 H 100 09/19/17 18:20 09/19/17 18:20 09/19/17 18:20 09/19/17 18:20 09/19/17 18:20 - Laboratory Laboratory results interpreted by me: 09/19/17 09/19/17 19:40 19:40 RDW 14.3 H Creatinine 0.51 L Beta HCG, Quant [id number] H Discharge <RODNEY WATTERS - Last Filed: 09/19/17 22:48> <KACEY MCKEON - Last Filed: 09/20/17 01:39> - Discharge Clinical Impression: Qualifiers: Weeks of gestation: less than 8 weeks Qualified Code(s): Z3A.01 - Less than 8 weeks gestation of Condition: Good Disposition: HOME, SELF-CARE Instructions: Pelvic Pain in ([facility]) Additional Instructions: Please follow-up with your previously scheduled appointment this Saturday with your [facility]. Please drink at least 6-8 glasses of water daily and try [id number] simethicone to see if this helps with your symptoms Prescriptions: Metoclopramide HCl [Reglan 10 mg Tablet] 1 tab PO ASDIR PRN #20 tablet PRN Reason: Referrals: JUAN GODINEZ PA [Primary Care Provider] - Follow up as needed Scribe Attestation: 09/20/17 01:39 I personally performed the services described documentation, reviewed and edited the documentation which was dictated to describe my presence, and it accurately records my words and actions. (KACEY MCKEON) Scribe Documentation - Scribe Written by Scribe:: Federico Pereira [id number]/19/171939 acting as scribe for :: Lazarus <RODNEY WATTERS - Last Filed: 09/19/17 22:48>
[2017-09-19 19:59] LABS: ABSOLUTE BASOPHILS # (AUTO) 0.1 10^3/uL (0.0-0.2); ABSOLUTE EOSINOPHILS # (AUTO) 0.1 10^3/uL (0.0-0.6); ABSOLUTE LYMPHOCYTES (AUTO) 2.2 10^3/uL (0.5-4.7); ABSOLUTE MONOCYTES (AUTO) 0.7 10^3/uL (0.1-1.4); ABSOLUTE NEUT (AUTO) 7.4 10^3/uL (1.7-8.2); BASOPHILS % (AUTO) 0.8 % (0-2); EOSINOPHILS % (AUTO) 0.7 % (0-6); HEMATOCRIT 37.1 % (36.0-47.0); HEMOGLOBIN 12.7 g/dL (12.0-15.5); LYMPHOCYTES % (AUTO) 20.7 % (13-45); MEAN CORPUSCULAR HEMOGLOBIN 27.9 pg (27.0-33.4); MEAN CORPUSCULAR HGB CONC 34.2 g/dL (32.0-36.0); MEAN CORPUSCULAR VOLUME 82 fl (80-97); MONOCYTES % (AUTO) 6.9 % (3-13); PLATELET COUNT 284 10^3/uL (150-450); RED BLOOD COUNT 4.55 10^6/uL (3.72-5.28); RED CELL DISTRIBUTION WIDTH 14.3 % (11.5-14.0); SEGMENTED NEUTROPHILS % (AUTO) 70.9 % (42-78); TOTAL CELLS COUNTED % (AUTO) 100 %; WHITE BLOOD COUNT 10.4 10^3/uL (4.0-10.5)
[2017-09-19 20:06] LABS: APPEARANCE,URINE CLEAR; BILIRUBIN,URINE NEGATIVE (NEGATIVE); COLOR,URINE YELLOW; GLUCOSE, URINE NEGATIVE (NEGATIVE); KETONES,URINE NEGATIVE (NEGATIVE); LEUKOCYTE ESTERASE,URINE NEGATIVE (NEGATIVE); NITRITE,URINE NEGATIVE (NEGATIVE); PROTEIN,URINE NEGATIVE (NEGATIVE); URINE SPECIFIC GRAVITY 1.011; UROBILINOGEN,URINE NEGATIVE mg/dL (<2.0)
[2017-09-19 20:11] LABS: ALANINE AMINOTRANSFERASE 26 U/L (9-52); ALBUMIN 4.5 g/dL (3.5-5.0); ALKALINE PHOSPHATASE 51 U/L (38-126); ANION GAP 12 (5-19); ASPARTATE AMINO TRANSFERASE 17 U/L (14-36); BILIRUBIN,DIRECT 0.3 mg/dL (0.0-0.4); BILIRUBIN,TOTAL 0.3 mg/dL (0.2-1.3); BLOOD UREA NITROGEN 10 mg/dL (7-20); CARBON DIOXIDE 26 mmol/L (22-30); CHLORIDE 104 mmol/L (98-107); GLUCOSE 97 mg/dL (75-110); LIPASE 114.7 U/L (23-300); POTASSIUM 3.9 mmol/L (3.6-5.0); SODIUM 141.6 mmol/L (137-145); TOTAL PROTEIN 7.8 g/dL (6.3-8.2)
[2017-09-19] MEDS ORDERED: METOCLOPRAMIDE HCL INJ/PF 10 MG/2 ML SDV IV ONE (20:26)
[2017-09-19] MEDS ORDERED: METOCLOPRAMIDE HCL 10 MG TABLET PO ONE (20:43)
--- NOTE | 2017-09-19 21:13 | RADIOLOGY REPORT (SQ) ---
EXAM DESCRIPTION: U/S OB TRANSVAGINAL W/O DOP COMPLETED DATE/TIME: 09/19/2017 8:42 pm REASON FOR STUDY: pelvic pain, + preg test COMPARISON: None. TECHNIQUE: Transvaginal static and realtime grayscale images acquired of the pelvis. Additional eneida cted spectral and color Doppler images recorded. All images stored on PACs. bHCG: Not available. CLINICAL DATES: 6 weeks 3 days LIMITATIONS: None. FINDINGS: FETUS: Living intrauterine . ULTRASOUND EGA: 6 weeks 5 days ULTRASOUND DEVONTE: 05/10/2018 CRL: 8.1 mm FHR: 128 beats per minute. SUBCHORIONIC BLEED: No SIZE OF BLEED: Not applicable. UTERUS: No masses. No anomalies. CERVICAL LENGTH: 3.8 center Closed. RIGHT ADNEXA: Normal ovary with normal vascular flow. No adnexal free fluid. No adnexal masses. LEFT ADNEXA: Ovary not identified. No adnexal free fluid. No adnexal masses. FREE FLUID: None. OTHER: No other significant finding. IMPRESSION: LIVING INTRAUTERINE . EGA 6 weeks 5 days Trimester of : First - 0 to 13 weeks. TECHNICAL DOCUMENTATION: JOB ID: [id number] [place]-[id number] 2010 [employer]- All Rights Reserved rev-08/02 Reading location - IP/workstation name: [email or web address]
== END 2017-09-19 21:27 | disposition home or self-care (01) ==
LOC: ER 18:13
DX: O21.9 Vomiting of pregnancy, unspecified (principal); O26.891 Other specified pregnancy related conditions, first trimester; R10.2 Pelvic and perineal pain; R10.9 Unspecified abdominal pain; R00.0 Tachycardia, unspecified; Z3A.01 Less than 8 weeks gestation of pregnancy
CPT/HCPCS: 36415; 76817; 80053; 81001; 83690; 84702; 84703; 85025; 99284

== ENCOUNTER 2018-04-16 13:43 | Inpatient (IN) | payer OTHER ==
[2018-04-29] MEDS ORDERED: RINGERS SOLUTION,LACTATED 300 ML IV ONE (08:51)
[2018-04-29] MEDS ORDERED: OXYTOCIN/NORMAL SALINE 20 UNIT/1,000 ML RTUINJ IV PRN ×2 (08:51→17:24)
[2018-04-29] MEDS ORDERED: PENICILLIN G POTASSIUM 5,000,000 UNIT in DEXTROSE 5%-WATER 100 ML IV ONE (09:01)
[2018-04-29] MEDS ORDERED: OXYTOCIN/NORMAL SALINE 20 UNIT/1,000 ML RTUINJ ONE (09:02)
[2018-04-29] MEDS ORDERED: LIDOCAINE 1% INJ-PF (10 MG/ML) 30 ML SDV ONE (09:02)
[2018-04-29] MEDS ORDERED: OXYTOCIN 10 UNIT/ML VIAL ONE (09:02)
[2018-04-29] MEDS ORDERED: MISOPROSTOL 0.2 MG TABLET ONE (09:02)
[2018-04-29] MEDS ORDERED: PENICILLIN G-K 5 MILLION UNIT VIAL ONE ×2 (09:03→13:22)
[2018-04-29 09:31] LABS: HEMATOCRIT 29.9 % (36.0-47.0); HEMOGLOBIN 10.4 g/dL (12.0-15.5); MEAN CORPUSCULAR HEMOGLOBIN 28.1 pg (27.0-33.4); MEAN CORPUSCULAR HGB CONC 34.7 g/dL (32.0-36.0); MEAN CORPUSCULAR VOLUME 81 fl (80-97); PLATELET COUNT 188 10^3/uL (150-450); RED BLOOD COUNT 3.69 10^6/uL (3.72-5.28); RED CELL DISTRIBUTION WIDTH 16.1 % (11.5-14.0); WHITE BLOOD COUNT 7.4 10^3/uL (4.0-10.5)
[2018-04-29] MEDS ORDERED: MAG HYDROX/AL HYDROX/SIMETH SUSP 30 ML UDCUP PO ONE (09:37)
[2018-04-29] MEDS ORDERED: MAG HYDROX/AL HYDROX/SIMETH SUSP 30 ML UDCUP ONE (09:39)
[2018-04-29] MEDS: RINGERS SOLUTION,LACTATED 1,000 ML IV PRN ×3 (09:44→17:24)
[2018-04-29] MEDS: LABETALOL HCL 200 MG TABLET PO SCH ×2 (09:57→21:22)
[2018-04-29 10:27] LABS: ABSOLUTE LYMPHOCYTES# (MANUAL) 1.4 10^3/uL (0.5-4.7); ABSOLUTE MONOCYTES # (MANUAL) 0.1 10^3/uL (0.1-1.4); ABSOLUTE NEUTROPHILS# (MANUAL) 5.8 10^3/uL (1.7-8.2); BASOPHILS % (MANUAL) 0 % (0-2); EOSINOPHILS % (MANUAL) 1 % (0-6); LYMPHOCYTES % (MANUAL) 19 % (13-45); METAMYELOCYTES % (MANUAL) 2 % (0); MONOCYTES % (MANUAL) 2 % (3-13); SEGMENTED NEUTROPHILS % (MAN) 76 % (42-78); TOTAL CELLS COUNTED 100
[2018-04-29 10:28] LABS: ANISOCYTOSIS 1+; OVALOCYTES SLIGHT; PLATELET COMMENT ADEQUATE; POIKILOCYTOSIS SLIGHT; POLYCHROMASIA SLIGHT
[2018-04-29 11:05] LABS: APPEARANCE,URINE SLIGHTLY-CLOUDY; BILIRUBIN,URINE NEGATIVE (NEGATIVE); COLOR,URINE YELLOW; GLUCOSE, URINE NEGATIVE (NEGATIVE); KETONES,URINE NEGATIVE (NEGATIVE); LEUKOCYTE ESTERASE,URINE LARGE (NEGATIVE); NITRITE,URINE NEGATIVE (NEGATIVE); PROTEIN,URINE NEGATIVE (NEGATIVE); UROBILINOGEN,URINE NEGATIVE mg/dL (<2.0)
[2018-04-29 11:19] LABS: URINE AMPHETAMINES SCREEN NEGATIVE; URINE BARBITURATES SCREEN NEGATIVE; URINE BENZODIAZEPINES SCREEN NEGATIVE; URINE COCAINE SCREEN NEGATIVE; URINE MARIJUANA (THC) SCREEN NEGATIVE; URINE METHADONE SCREEN NEGATIVE; URINE PHENCYCLIDINE SCREEN NEGATIVE
[2018-04-29] MEDS ORDERED: PENICILLIN G POTASSIUM 2,500,000 UNIT in DEXTROSE 5%-WATER 50 ML IV SCH (13:02)
[2018-04-29 13:15] LABS: ALANINE AMINOTRANSFERASE 8 U/L (9-52); ALBUMIN 2.8 g/dL (3.5-5.0); ALKALINE PHOSPHATASE 156 U/L (38-126); ANION GAP 7 (5-19); ASPARTATE AMINO TRANSFERASE 16 U/L (14-36); BILIRUBIN,DIRECT 0.2 mg/dL (0.0-0.4); BILIRUBIN,TOTAL 0.3 mg/dL (0.2-1.3); BLOOD UREA NITROGEN 5 mg/dL (7-20); CALCIUM 8.2 mg/dL (8.4-10.2); CARBON DIOXIDE 24 mmol/L (22-30); CHLORIDE 106 mmol/L (98-107); GLUCOSE 94 mg/dL (75-110); POTASSIUM 3.7 mmol/L (3.6-5.0); SODIUM 136.9 mmol/L (137-145); TOTAL PROTEIN 5.4 g/dL (6.3-8.2); URIC ACID 3.8 mg/dL (2.5-6.2)
[2018-04-29] MEDS ORDERED: EPHEDRINE SULFATE INJ 50 MG/1 ML AMPULE ONE (14:04)
[2018-04-29] MEDS ORDERED: PHENYLEPHRINE HCL INJ/PF 10 MG/1 ML SDV ONE (14:04)
[2018-04-29] MEDS ORDERED: FENTANYL CITRATE INJ/PF 100 MCG/2 ML AMPUL ONE (14:04)
[2018-04-29] MEDS ORDERED: FENTANYL/BUPIVACAINE/NS/PF 300 MCG/150 ML RTUINJ EPI ONE (14:04)
[2018-04-29] MEDS ORDERED: LIDOCAINE 1.5%/EPINEPHRINE INJ-PF 30 ML SDV ONE (14:05)
[2018-04-29] MEDS ORDERED: BUPIVACAINE HCL 0.25 % INJ/PF (2.5 MG/1 ML) 30 ML VIAL ONE (14:05)
[2018-04-29] MEDS ORDERED: PROMETHAZINE HCL INJ 25 MG/1 ML VIAL IV PRN (17:24)
[2018-04-29] MEDS ORDERED: MAGNESIUM HYDROXIDE SUSP 30 ML UDCUP PO PRN (17:24)
[2018-04-29] MEDS ORDERED: MEASLES,MUMPS&RUBELLA VACC/PF 0.5 ML VIAL SUBCUT PRN (17:24)
[2018-04-29] MEDS ORDERED: MISOPROSTOL 0.2 MG TABLET PR PRN (17:24)
[2018-04-29] MEDS ORDERED: DIPH/PERTUSS(ACELL)/TETANUS VAC/PF 0.5 ML SYR (>=10YO) IM PRN (17:24)
[2018-04-29] MEDS ORDERED: NA PHOS,M-B/NA PHOS,DI-BA (ADULT) 133 ML ENEMA PR PRN (17:24)
[2018-04-29] MEDS ORDERED: PROMETHAZINE HCL 25 MG SUPP.RECT PR PRN (17:24)
[2018-04-29] MEDS ORDERED: BENZOCAINE/MENTHOL AEROSOL SPRAY 56 ML TOP PRN (17:24)
[2018-04-29] MEDS ORDERED: GLYCERIN/WITCH HAZEL LEAF 1 EACH MED..PAD TP PRN (17:24)
[2018-04-29] MEDS ORDERED: DIPHENHYDRAMINE HCL 25 MG CAPSULE PO PRN (17:24)
[2018-04-29] MEDS ORDERED: ACETAMINOPHEN 650 MG SUPP.RECT PR PRN (17:24)
[2018-04-29] MEDS ORDERED: PROMETHAZINE HCL 25 MG TABLET PO PRN (17:24)
[2018-04-29] MEDS ORDERED: PSEUDOEPHEDRINE HCL 30 MG TABLET PO PRN (17:24)
[2018-04-29] MEDS ORDERED: DIBUCAINE 1% OINTMENT 28 GM TP PRN (17:24)
[2018-04-29] MEDS ORDERED: ACETAMINOPHEN WITH CODEINE #3 TABLET PO PRN ×2 (17:24)
[2018-04-29] MEDS: IBUPROFEN 800 MG TABLET PO SCH (21:18)
[2018-04-29] MEDS ORDERED: FAMOTIDINE 20 MG TABLET PO SCH (22:00)
[2018-04-30 07:42] LABS: HEMATOCRIT 28.4 % (36.0-47.0); HEMOGLOBIN 9.6 g/dL (12.0-15.5); MEAN CORPUSCULAR HEMOGLOBIN 27.3 pg (27.0-33.4); MEAN CORPUSCULAR HGB CONC 33.8 g/dL (32.0-36.0); MEAN CORPUSCULAR VOLUME 81 fl (80-97); PLATELET COUNT 175 10^3/uL (150-450); RED BLOOD COUNT 3.52 10^6/uL (3.72-5.28); RED CELL DISTRIBUTION WIDTH 15.8 % (11.5-14.0)
[2018-04-30] MEDS: FERROUS SULFATE 325 MG TABLET PO SCH ×2 (09:36→17:42)
[2018-04-30] MEDS: PRENATAL VITAMIN W DHA CAPSULE PO SCH (09:37)
[2018-04-30] MEDS: LABETALOL HCL 200 MG TABLET PO SCH ×2 (09:37→21:30)
[2018-04-30] MEDS: DOCUSATE SODIUM 100 MG CAPSULE PO SCH ×2 (09:37→17:41)
[2018-04-30] MEDS ORDERED: SENNOSIDES/DOCUSATE 8.6-50 MG 1 EACH TABLET PO SCH (10:00)
--- NOTE | 2018-04-30 13:11 | PDOC PROGRESS REPORT ---
Subjective-OB Progress Note for:: 04/30/18 Subjective: Doing well Physical Exam (OB) Vital Signs: Temp Pulse Resp BP Pulse Ox 98.5 F 90 16 131/76 H 98 04/30/18 07:32 04/30/18 07:32 04/30/18 07:32 04/30/18 07:32 04/30/18 07:32 Intake & Output 04/29/18 04/30/18 05/01/18 06:59 06:59 06:59 Intake Total 959 650 Balance 959 650 Weight 67.7 kg - General General Appearance: Appears well - fundus firm, ext nontender - PIH/Pre-Eclampsia DTR's: 2 + Clonus: Negative Headache: Absent Epigastric Pain: No Visual Changes: No - Lochia Lochia Amount: Scant < 10 ml Lochia Color: Rubra/Red - Abdomen Description: Tender, Soft Hernia Present: No Fundal Description: Firm, Midline Fundal Height: u/u - u/2 Objective-Diagnostic Laboratory: 04/30/18 07:29 04/29/18 09:15 04/29/18 04/30/18 09:15 07:29 WBC 14.0 H RBC 3.52 L Hgb 9.6 L Hct 28.4 L MCV 81 MCH 27.3 MCHC 33.8 RDW 15.8 H Plt Count 175 Sodium 136.9 L Potassium 3.7 Chloride 106 Carbon Dioxide 24 Anion Gap 7 BUN 5 L Creatinine 0.38 L Est GFR ( Amer) > 60 Est GFR (Non-Af Amer) > 60 Glucose 94 Uric Acid 3.8 Calcium 8.2 L Total Bilirubin 0.3 AST 16 ALT 8 L Alkaline Phosphatase 156 H Total Protein 5.4 L Albumin 2.8 L Assessment and Plan(PN) - Assessment and Plan (1) Delivery normal Is this a current diagnosis for this admission?: Yes Plan:: continue pp care - Disposition Anticipated Discharge: Home Within: within 48 hours
[2018-04-30] MEDS: IBUPROFEN 800 MG TABLET PO SCH ×2 (14:29→21:31)
[2018-05-01] MEDS: IBUPROFEN 800 MG TABLET PO SCH ×2 (06:42→14:16)
[2018-05-01] MEDS: FERROUS SULFATE 325 MG TABLET PO SCH (09:16)
[2018-05-01] MEDS: PRENATAL VITAMIN W DHA CAPSULE PO SCH (09:16)
[2018-05-01] MEDS: DOCUSATE SODIUM 100 MG CAPSULE PO SCH (09:16)
[2018-05-01] MEDS: LABETALOL HCL 200 MG TABLET PO SCH (09:17)
--- NOTE | 2018-05-01 09:53 | PDOC DISCHARGE SUMMARY ---
Final Diagnosis Discharge Date: 05/01/18 - PP day #2, Hx Pre-eclampsia, doing well, denies headache. . O+, rubella Immune. - Final Diagnosis (1) Normal course Is this a current diagnosis for this admission?: Yes (2) Delivery normal Is this a current diagnosis for this admission?: Yes (3) GBS (group B Streptococcus carrier), +RV culture, currently Is this a current diagnosis for this admission?: Yes (4) Gestational [-induced] hypertension without significant proteinuria, complicating childbirth Is this a current diagnosis for this admission?: Yes (5) Hypertension affecting Is this a current diagnosis for this admission?: Yes (6) Urinary tract infection Is this a current diagnosis for this admission?: Yes Discharge Data - Discharge Medication Prescriptions: Ibuprofen [Motrin 800 mg Tablet] 800 mg PO Q8 #60 tablet Home Medications: Vit/Iron Fum/Folic AC [ Tablet] 1 each PO DAILY 05/10/16 Ferrous Sulfate [Feosol 325 mg Tablet] 325 mg PO BID #60 tablet 06/21/16 Labetalol HCl [Normodyne 200 mg Tablet] 200 mg PO DAILY 04/23/18 Ibuprofen [Motrin 800 mg Tablet] 800 mg PO Q8 #60 tablet 05/01/18 Reason(s) for Admission: Induction of Labor, Obstetric Complications Admission Note: GHTN Procedures: NST, Ultrasound Intrapartum Procedure(s): Spontaneous Vaginal Delivery - Diagnosis Test Laboratory: Temp Pulse Resp BP Pulse Ox 97.4 F 76 20 144/91 H 100 05/01/18 07:40 05/01/18 07:40 05/01/18 07:40 05/01/18 07:40 05/01/18 07:40 04/29/18 04/29/18 04/30/18 08:10 09:15 07:29 RBC 3.69 L 3.52 L Hgb 10.4 L 9.6 L Hct 29.9 L 28.4 L Urine Opiates Screen NEGATIVE - Discharge information/Instructions Discharge Activity: Activity As Tolerated, No Lifting Over 10 Pounds, Pelvic Rest Discharge Diet: As Tolerated, Regular Disposition: HOME, SELF-CARE Follow up with: [facility] in: 1, Weeks - for BP check
[2018-05-01 11:13] VITALS: BP 120/80
--- NOTE | 2018-05-05 14:30 | Delivery Summary ---
Del Sum A-C Datetime Report Generated by CPN: 05/05/2018 14:29 DELIVERY PERSONNEL DELIVERY PERSONNEL: [id number] Delivery Doctor:: Elodia Maldonado CNM Labor and Delivery Nurse:: Steph Chambers RNlead supply worker Nurse:: Roopa Caba RN Facialist/GRADE RECORDER: Kitty Chow, ST MATERNAL INFORMATION Delivery Anesthesia: Epidural Medications After Delivery: Pitocin Bolus-Please Comment; Cytotec 600mcg Per Rectum/Vagina Meds After Delivery Comment: pitocin 20 units in 1 L NS bolusing per order Maternal Complications: None Provider Comments: pushed x 2, viable female, compound hand, OA to LAISHA, intact perineum, baby placed on mothers abd, cord clamped and cut after 2 min by father. Spont delivery of grossly nl intact placenta, 3 VC, shiny [place] . FFFM, mild uterine atony, Pitocin, massage and cytotec 600 mcg via rectum Baby and mom remain in recovery in stable condition LABOR SUMMARY EDC: 05/12/2018 00:00 No. Babies in Womb: 1 Attempted: No Labor Anesthesia: Epidural LABOR INFORMATION Reason for Induction: Chronic Primary/Essential HTN; Pre-Eclampsia Onset of Labor: 04/29/2018 13:00 Complete Dilatation: 04/29/2018 16:57 Oxytocin: Induction Group B Beta Strep: positive Antibiotics # of Doses: 2 Antibiotics Time of Last Dose: 1328 Name of Antibiotic Given: PCN Steroids Given: None Reason Steroids Not Administered: Not Applicable MEMBRANES Membranes Rupture Method: Artificial Rupture of Membranes: 04/29/2018 13:38 Length of Rupture (hr): 3.48 Amniotic Fluid Color: Clear Amniotic Fluid Amount: Large Amniotic Fluid Odor: Normal STAGES OF LABOR Stage 1 hr: 3 Stage 1 min: 57 Stage 2 hr: 0 Stage 2 min: 10 Stage 3 hr: 0 Stage 3 min: 4 Total Time in Labor hr: 4 Total Time in Labor min: 11 VAGINAL DELIVERY Episiotomy: None Laceration #1: None Laceration Extension #1: N/A Laceration Repair: Not Applicable Sponge Count Correct: N/A Sharps Count Correct: N/A CSECTION DELIVERY Primary Indication: N/A Secondary Indication: N/A CSection Incidence: N/A Labor: N/A Elective: N/A CSection Incision: N/A BABY A INFORMATION Delivery Date/Time: 04/29/2018 17:07 Method of Delivery: Vaginal Method of Delivery: Vaginal Born in Route : No : N/A Forceps: N/A Vacuum Extraction: N/A Shoulder Dystocia : No PRESENTATION/POSITION BABY A Presentation: Cephalic Cephalic Presentation: Vertex Vertex Position: Right Occipital Anterior Breech Presentation: N/A PLACENTA INFORMATION BABY A Placenta Delivery Time : 04/29/2018 17:11 Placenta Method of Delivery: Spontaneous Placenta Method of Delivery: Spontaneous Placenta Status: Delivered SCORES BABY A Heart Rate 1 min: >100 bpm Resp Effort 1 min: Good Cry Reflex Irritability 1 min: Cough or Sneeze or Pulls Away Muscle Tone 1 min: Active Motion Color 1 min: Blue/Pale Resuscitation Effort 1 min: Tactile Stimulation SCORE 1 MIN: 8 Heart Rate 5 min: >100 bpm Resp Effort 5 min: Good Cry Reflex Irritability 5 min: Cough or Sneeze or Pulls Away Muscle Tone 5 min: Active Motion Color 5 min: Body [place], Extremities Blue SCORE 5 MIN: 9 INFANT INFORMATION BABY A Gestational Age at Delivery: 38.1 Gestational Status: Early Term- 37- 38.6 Weeks Outcome : Liveborn Infant Condition : Stable Sex: Female Sex: Female IDENTIFICATION BABY A Verification Date/Time: 04/29/2018 17:29 ID Band Number: [id number] Mother's Name Verified: Yes RN Verifying : C. Page RN M. Rosales RN WEIGHT/LENGTH BABY A Infant Birthweight (gm): 3230 Infant Weight (lb): 7 Infant Weight (oz): 2 Infant Length (in): 20.50 Infant Length (cm): 52.07 CORD INFORMATION BABY A No. 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
--- NOTE | 2018-05-12 11:38 | Admission Physical ---
Datetime Report Generated by CPN: 05/12/2018 11:37 CURRENT ADMISSION Hx Assessment: The History has been Reviewed and is Current Chief Complaint: Scheduled Induction of Labor Indication for Induction: Gestational HTN Admit Impression : Term, Intrauterine ; No Active Labor; Intact Membranes Admit Plan: Admit to Unit; Initiate Labor Protocol; Initiate Labor Induction Protocol ALLERGIES Medication Allergies: No Medication Allergies: No Known Allergies (04/29/2018) Medication Allergies: No Known Allergies (04/23/2018) Medication Allergies: No Known Allergies (09/19/2017) Latex: No Latex Allergies OBSTETRICAL HISTORY EDC: 05/12/2018 00:00 : 4 Para: 3 Term: 3 : 0 SAB: 0 IAB: 0 Ectopic: 0 Livin Cesareans: 0 VBACs: 0 Multiple Births: 0 Gestational Diabetes: No Rh Sensitization: No Incompetent Cervix: No ULISES: No Infertility: No ART Treatment: No Uterine Anomaly: No IUGR: No Hx Previous C/S: No Macrosomia: No Hx Loss/Stillborn: No PIH: Yes Hx : No Placenta Previa/Abruption: No Depression/PP Depression: No PTL/PROM: No Post Hemorrhage: No Current Procedures: Ultrasound; NST Obstetrical History Comments: G1: 2011 39 weeks G2: 2012 37.5, G3: 2016 40.1, SEE RECORDS Alcohol: No Marijuana : No Cocaine: No Other Illicit Drugs: No Cigarettes: Never Smoker. 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 Surgery: No Heart Disease: No Hosp/Surgery: Yes Autoimmune Disorder: No Anesthetic Complications: No Kidney Disease: No Abnormal Pap Smear: No Neuro/Epilepsy: No Psychiatric Disorders: No Other Medical Diseases: No Hepatitis/Liver Disease: No Significant Family History: No Varicosities/Phlebitis: No Trauma/Violence : No Thyroid Dysfunction: No Medical History Comments: childbirth: 2016 INFECTIOUS HISTORY Gonorrhea: No Genital Herpes: No Chlamydia: No Tuberculosis: No Syphilis: No Hepatitis: No HIV/AIDS Exposure: No Rash or Viral Illness: No HPV: No PHYSICAL EXAM General: Normal HEENT: Deferred Neurologic: Normal Thyroid: Normal Heart: Normal Lungs: Normal Breast: Deferred Back: Normal Abdomen: Normal Genitourinary Exam: Normal Extremities: Normal DTRs: Normal Pelvic Type: Adequate Physical Exam Comments: On labetalol 100 BID + GBS Proteinuria on 24 our ua VAGINAL EXAM Dilatation: 3 Effacement: 75 Station: 0 MEMBRANES Membranes: Ruptured Membranes: Intact Amniotic Fluid Color: Clear Amniotic Fluid Color: Meconium, Particulate FETUS A EGA: 38.1 Monitoring: External US FHR- Baseline: 150 Variability: Moderate 6-25bpm Accelerations: 15X15 Decelerations: None Admit Comment: Admitted to LD for IOL @ 38,q for gestational hypertension on meds, + GBS Cat 1 strip , pelvis proven for 7-2 Meds for GBS, Pitocin Anticipate PLANS FOR LABOR AND DELIVERY Labor and Delivery: None Pain Management: Epidural Feeding Preference: Breast Benefit of Breast Feed Discussed: Yes Circumcision: No INFORMED CONSENT Assignment: Sonja Caba MD Signature: with User ID: [email or web address] : with User ID: [email or web address]
== END 2018-05-01 15:01 | disposition home or self-care (01) | DRG 807 ==
LOC: LR 04-29 07:49 → 2S 04-29 19:52
PROVIDERS: ADMIT Student in an Organized Health Care Education/Training Program; ATTEND Student in an Organized Health Care Education/Training Program
PROC: 10E0XZZ Delivery of Products of Conception, External Approach (ICD-10-PCS; principal; 2018-04-29)
DX: O13.4 Gestational [pregnancy-induced] hypertension without significant proteinuria, complicating childbirth (principal); Z37.0 Single live birth; O11.4 Pre-existing hypertension with pre-eclampsia, complicating childbirth; O75.3 Other infection during labor; O99.824 Streptococcus B carrier state complicating childbirth; O77.0 Labor and delivery complicated by meconium in amniotic fluid; Z3A.38 38 weeks gestation of pregnancy
CPT/HCPCS: 36415; 80053; 80307; 81001; 83615; 84550; 85025; 85027; 86592; 86850; 86900; 86901; J2370; J2540; J2590; J3010; J3490

== ENCOUNTER 2018-04-23 13:39 | Outpatient (CLI) | payer OTHER ==
[2018-04-23 14:09] LABS: APPEARANCE,URINE CLEAR; BILIRUBIN,URINE NEGATIVE (NEGATIVE); COLOR,URINE STRAW; GLUCOSE, URINE NEGATIVE (NEGATIVE); KETONES,URINE NEGATIVE (NEGATIVE); LEUKOCYTE ESTERASE,URINE TRACE (NEGATIVE); NITRITE,URINE NEGATIVE (NEGATIVE); PROTEIN,URINE NEGATIVE (NEGATIVE); URINE SPECIFIC GRAVITY 1.002; UROBILINOGEN,URINE NEGATIVE mg/dL (<2.0)
[2018-04-23 14:24] LABS: URINE AMPHETAMINES SCREEN NEGATIVE; URINE BARBITURATES SCREEN NEGATIVE; URINE BENZODIAZEPINES SCREEN NEGATIVE; URINE COCAINE SCREEN NEGATIVE; URINE MARIJUANA (THC) SCREEN NEGATIVE; URINE METHADONE SCREEN NEGATIVE; URINE PHENCYCLIDINE SCREEN NEGATIVE
[2018-04-23 14:34] LABS: UR PRO/CREAT RATIO RESULT 0.9 mg/mg (0.0-0.2); URINE CREATININE 19.3 mg/dL (16-327); URINE PROTEIN 16.9 mg/dL (<12)
[2018-04-23 15:13] LABS: HEMATOCRIT 29.9 % (36.0-47.0); HEMOGLOBIN 10.4 g/dL (12.0-15.5); MEAN CORPUSCULAR HGB CONC 34.9 g/dL (32.0-36.0); MEAN CORPUSCULAR VOLUME 80 fl (80-97); PLATELET COUNT 182 10^3/uL (150-450); RED BLOOD COUNT 3.73 10^6/uL (3.72-5.28); RED CELL DISTRIBUTION WIDTH 15.6 % (11.5-14.0); WHITE BLOOD COUNT 8.5 10^3/uL (4.0-10.5)
[2018-04-23 15:29] LABS: ALANINE AMINOTRANSFERASE 20 U/L (9-52); ALBUMIN 3.2 g/dL (3.5-5.0); ALKALINE PHOSPHATASE 165 U/L (38-126); ANION GAP 8 (5-19); ASPARTATE AMINO TRANSFERASE 16 U/L (14-36); BILIRUBIN,DIRECT 0.1 mg/dL (0.0-0.4); BILIRUBIN,TOTAL 0.3 mg/dL (0.2-1.3); BLOOD UREA NITROGEN 6 mg/dL (7-20); CALCIUM 8.4 mg/dL (8.4-10.2); CARBON DIOXIDE 21 mmol/L (22-30); CHLORIDE 108 mmol/L (98-107); GLUCOSE 119 mg/dL (75-110); POTASSIUM 3.3 mmol/L (3.6-5.0); SODIUM 136.6 mmol/L (137-145); TOTAL PROTEIN 5.8 g/dL (6.3-8.2); URIC ACID 4.3 mg/dL (2.5-6.2)
[2018-04-23 15:33] LABS: ABSOLUTE LYMPHOCYTES# (MANUAL) 1.8 10^3/uL (0.5-4.7); ABSOLUTE MONOCYTES # (MANUAL) 0.3 10^3/uL (0.1-1.4); ABSOLUTE NEUTROPHILS# (MANUAL) 6.4 10^3/uL (1.7-8.2); BAND NEUTROPHILS % (MANUAL) 5 % (3-5); BASOPHILS % (MANUAL) 0 % (0-2); EOSINOPHILS % (MANUAL) 0 % (0-6); LYMPHOCYTES % (MANUAL) 21 % (13-45); MONOCYTES % (MANUAL) 4 % (3-13); SEGMENTED NEUTROPHILS % (MAN) 70 % (42-78); TOTAL CELLS COUNTED 100
[2018-04-23 15:34] LABS: PLATELET COMMENT ADEQUATE
--- NOTE | 2018-04-23 16:45 | Non Stress Test Report ---
Non Stress Test Datetime Report Generated by CPN: 04/23/2018 16:45 DEMOGRAPHIC EGA NST: 37.2 INDICATION Indication for Study: Ordered by Provider Indication for Study (NST) Other: PRE-E W/U MONITORING Monitor Explained: Monitor Explained; Test Explained; Patient Verbalized Understanding Time on Monitor: 04/23/2018 13:57 Time off Monitor: 04/23/2018 16:26 NST Duration: 149 NST INTERVENTIONS NST Interventions: PO Hydration; Reposition Patient BABY A: [id number] BABY A Movement : Present Contraction Frequency : NONE FHR Baseline : 155 Accelerations : 15X15 Variability : Moderate 6-25bpm NST Review: Meets Criteria for Reactive NST NST Review and Verified By : Kayli Mcarthur RN NST Results: Reactive NST REPORT Report Trigger: Send Report
== END 2018-04-23 16:42 | disposition home or self-care (01) ==
LOC: LC 13:39
PROVIDERS: ATTEND Obstetrics & Gynecology
PROC: 4A1HXCZ Monitoring of Products of Conception, Cardiac Rate, External Approach (ICD-10-PCS; principal; 2018-04-23)
DX: O16.3 Unspecified maternal hypertension, third trimester (principal); Z3A.37 37 weeks gestation of pregnancy
CPT/HCPCS: 36415; 59025; 80053; 80307; 81001; 82570; 83615; 84156; 84550; 85025

== ENCOUNTER → 2018-04-25 | Outpatient (CLI) | payer OTHER ==
--- NOTE | 2018-04-25 12:40 | Non Stress Test Report ---
Non Stress Test Datetime Report Generated by CPN: 04/25/2018 12:39 DEMOGRAPHIC EGA NST: 37.4 INDICATION Indication for Study: Ordered by Provider Indication for Study (NST) Other: CHTN VITAL SIGNS Temperature - NST: 98.4 MONITORING Monitor Explained: Monitor Explained; Test Explained; Patient Verbalized Understanding Time on Monitor: 04/25/2018 11:58 Time off Monitor: 04/25/2018 12:38 NST Duration: 40 NST INTERVENTIONS NST Interventions: PO Hydration Physician Notified NST: Younger, MD BABY A: [id number] BABY A Movement : Present Contraction Frequency : irrritibility FHR Baseline : 145 Accelerations : 15X15 Decelerations : None Variability : Moderate 6-25bpm NST Review: Meets Criteria for Reactive NST NST Review and Verified By : Fabian Caba RN NST Results: Reactive NST REPORT Report Trigger: Send Report
--- NOTE | 2018-04-29 10:30 | Admission Physical ---
Datetime Report Generated by CPN: 04/29/2018 10:29 CURRENT ADMISSION Hx Assessment: The History has been Reviewed and is Current Chief Complaint: Scheduled Induction of Labor Indication for Induction: Gestational HTN Admit Impression : Term, Intrauterine ; No Active Labor; Intact Membranes Admit Plan: Admit to Unit; Initiate Labor Protocol; Initiate Labor Induction Protocol ALLERGIES Medication Allergies: No Medication Allergies: No Known Allergies (04/23/2018) Latex: No Latex Allergies OBSTETRICAL HISTORY EDC: 05/12/2018 00:00 : 4 Para: 3 Term: 3 : 0 SAB: 0 IAB: 0 Ectopic: 0 Livin Cesareans: 0 VBACs: 0 Multiple Births: 0 Gestational Diabetes: No Rh Sensitization: No Incompetent Cervix: No ULISES: No Infertility: No ART Treatment: No Uterine Anomaly: No IUGR: No Hx Previous C/S: No Macrosomia: No Hx Loss/Stillborn: No PIH: Yes Hx : No Placenta Previa/Abruption: No Depression/PP Depression: No PTL/PROM: No Post Hemorrhage: No Current Procedures: Ultrasound; NST Obstetrical History Comments: G1: 2011 39 weeks G2: 2012 37.5, G3: 2016 40.1, SEE RECORDS Alcohol: No Marijuana : No Cocaine: No Other Illicit Drugs: No Cigarettes: Never Smoker. [id number] MEDICAL HISTORY Diabetes: No Blood Transfusion: No Pulmonary Disease (Asthma, TB): No Breast Disease: No Hypertension: No Rating Specialist Surgery: No Heart Disease: No Hosp/Surgery: Yes Autoimmune Disorder: No Anesthetic Complications: No Kidney Disease: No Abnormal Pap Smear: No Neuro/Epilepsy: No Psychiatric Disorders: No Other Medical Diseases: No Hepatitis/Liver Disease: No Significant Family History: No Varicosities/Phlebitis: No Trauma/Violence : No Thyroid Dysfunction: No Medical History Comments: childbirth: 2011, 2012, 2016 INFECTIOUS HISTORY Gonorrhea: No Genital Herpes: No Chlamydia: No Tuberculosis: No Syphilis: No Hepatitis: No HIV/AIDS Exposure: No Rash or Viral Illness: No HPV: No PHYSICAL EXAM General: Normal HEENT: Deferred Neurologic: Normal Thyroid: Normal Heart: Normal Lungs: Normal Breast: Deferred Back: Normal Abdomen: Normal Genitourinary Exam: Normal Extremities: Normal DTRs: Normal Pelvic Type: Adequate Physical Exam Comments: On labetalol 100 BID + GBS Proteinuria on 24 our ua MEMBRANES Membranes: Intact FETUS A EGA: 38.1 Monitoring: External US FHR- Baseline: 150 Variability: Moderate 6-25bpm Accelerations: 15X15 Decelerations: None Admit Comment: Admitted to LD for IOL @ 38,q for gestational hypertension on meds, + GBS Cat 1 strip , pelvis proven for 7-2 Meds for GBS, Pitocin Anticipate PLANS FOR LABOR AND DELIVERY Labor and Delivery: None Pain Management: Epidural Feeding Preference: Breast Benefit of Breast Feed Discussed: Yes Circumcision: No INFORMED CONSENT Assignment: Sonja Caba MD Signature: with User ID: [email or web address] : with User ID: [email or web address]
--- NOTE | 2018-04-29 13:49 | L&D Progress Notes ---
PROGRESS NOTES Datetime Report Generated by CPN: 04/29/2018 13:48 PROGRESS NOTE Impression: Reassuring Heart Rate Procedures: Artificial ROM; Sterile Vag Exam Plan: Continue Present Management; Induction Vital Signs : Reviewed; Within Normal Limits Comment: VE /vtx/0, AROM, large amount of clear fluid, fingers on side of head, pushed back , now vertex which is well applied, uc's q 2-3 min , Cat 1 strip VAGINAL EXAM Dilatation: 3 Effacement: 75 Station: 0 LAST VAGINAL EXAM-NURSING Dilitation: 3.0 Dilitation: 2.5 Effacement: 70 Effacement: LONG Station: 0 Station: -1 Contractions: pt denies ctxs MEMBRANES Membranes: Ruptured Membranes: Intact Amniotic Fluid Color: Meconium, Particulate FETUS A Monitoring: External US : 38.1 SIGNATURE SIGNATURE: [id number];[id number];[id number] SIGNATURE: ,[id number];14,[id number] SIGNATURE: [id number] SIGNATURE: [id number] Assignment: Sonja Caba MD Signature: with User ID: [email or web address] : with User ID: [email or web address]
--- NOTE | 2018-04-29 13:51 | L&D Progress Notes ---
PROGRESS NOTES Datetime Report Generated by CPN: 04/29/2018 13:50 PROGRESS NOTE Comment: amniotic fluid is clear not meconium as charted on last note MEMBRANES Amniotic Fluid Color: Clear FETUS C SIGNATURE: [id number];14,[id number];10,[id number] Assignment: Sonja Caba MD Signature: with User ID: [email or web address] : with User ID: [email or web address]
--- NOTE | 2018-04-29 19:18 | Warning Signs in Babies ---
VOD Warning Signs Datetime Report Generated by [facility]: 04/29/2018 19:18 VOD#608 -Warning Signs in Babies: Viewed with Parent(s)/Family (04/23/2018 13:49:Ana Montes De Oca RN)
--- NOTE | 2018-04-29 19:19 | Delivery Summary ---
Del Sum A-C Datetime Report Generated by CPN: 04/29/2018 19:19 DELIVERY PERSONNEL DELIVERY PERSONNEL: [id number] Delivery Doctor:: Elodia Maldonado CNM Labor and Delivery Nurse:: Steph Chambers RNrn lab Nurse:: Roopa Caba RN Insulator Apprentice/PSYCHIATRIC CLINICAL NURSE SPECIALIST: Kitty Chow, ST MATERNAL INFORMATION Delivery Anesthesia: Epidural Medications After Delivery: Pitocin Bolus-Please Comment; Cytotec 600mcg Per Rectum/Vagina Meds After Delivery Comment: pitocin 20 units in 1 L NS bolusing per order Maternal Complications: None Provider Comments: pushed x 2, viable female, compound hand, OA to LAISHA, intact perineum, baby placed on mothers abd, cord clamped and cut after 2 min by father. Spont delivery of grossly nl intact placenta, 3 VC, shiny casillas . FFFM, mild uterine atony, Pitocin, massage and cytotec 600 mcg via rectum Baby and mom remain in recovery in stable condition LABOR SUMMARY EDC: 05/12/2018 00:00 No. Babies in Womb: 1 Attempted: No Labor Anesthesia: Epidural LABOR INFORMATION Reason for Induction: Chronic Primary/Essential HTN; Pre-Eclampsia Onset of Labor: 04/29/2018 13:00 Complete Dilatation: 04/29/2018 16:57 Oxytocin: Induction Group B Beta Strep: positive Antibiotics # of Doses: 2 Antibiotics Time of Last Dose: 1328 Name of Antibiotic Given: PCN Steroids Given: None Reason Steroids Not Administered: Not Applicable MEMBRANES Membranes Rupture Method: Artificial Rupture of Membranes: 04/29/2018 13:38 Length of Rupture (hr): 3.48 Amniotic Fluid Color: Clear Amniotic Fluid Amount: Large Amniotic Fluid Odor: Normal STAGES OF LABOR Stage 1 hr: 3 Stage 1 min: 57 Stage 2 hr: 0 Stage 2 min: 10 Stage 3 hr: 0 Stage 3 min: 4 Total Time in Labor hr: 4 Total Time in Labor min: 11 VAGINAL DELIVERY Episiotomy: None Laceration #1: None Laceration Extension #1: N/A Laceration Repair: Not Applicable Sponge Count Correct: N/A Sharps Count Correct: N/A CSECTION DELIVERY Primary Indication: N/A Secondary Indication: N/A CSection Incidence: N/A Labor: N/A Elective: N/A CSection Incision: N/A BABY A INFORMATION Delivery Date/Time: 04/29/2018 17:07 Method of Delivery: Vaginal Born in Route : No : N/A Forceps: N/A Vacuum Extraction: N/A Shoulder Dystocia : No PRESENTATION/POSITION BABY A Presentation: Cephalic Cephalic Presentation: Vertex Vertex Position: Right Occipital Anterior Breech Presentation: N/A PLACENTA INFORMATION BABY A Placenta Delivery Time : 04/29/2018 17:11 Placenta Method of Delivery: Spontaneous Placenta Status: Delivered SCORES BABY A Heart Rate 1 min: >100 bpm Resp Effort 1 min: Good Cry Reflex Irritability 1 min: Cough or Sneeze or Pulls Away Muscle Tone 1 min: Active Motion Color 1 min: Blue/Pale Resuscitation Effort 1 min: Tactile Stimulation SCORE 1 MIN: 8 Heart Rate 5 min: >100 bpm Resp Effort 5 min: Good Cry Reflex Irritability 5 min: Cough or Sneeze or Pulls Away Muscle Tone 5 min: Active Motion Color 5 min: Body [place], Extremities Blue SCORE 5 MIN: 9 INFORMATION BABY A Gestational Age at Delivery: 38.1 Gestational Status: Early Term- 37- 38.6 Weeks Infant Outcome : Liveborn Condition : Stable Infant Sex: Female IDENTIFICATION BABY A Verification Date/Time: 04/29/2018 17:29 ID Band Number: [id number] Mother's Name Verified: Yes Infant RN Verifying : C. [place] RN M. Rosales RN WEIGHT/LENGTH BABY A Birthweight (gm): 3230 Weight (lb): 7 Weight (oz): 2 Infant Length (in): 20.50 Infant Length (cm): 52.07 CORD INFORMATION BABY A No. 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
== END ==
LOC: LC 11:28
PROVIDERS: ATTEND Obstetrics & Gynecology
PROC: 4A1HXCZ Monitoring of Products of Conception, Cardiac Rate, External Approach (ICD-10-PCS; principal; 2018-04-25)
DX: Z36.89 Encounter for other specified antenatal screening (principal)
CPT/HCPCS: 59025